=== PATIENT | female | born 1975 | race Caucasian/White ===

== ENCOUNTER → 2017-06-04 | Outpatient (CLI) | payer OTHER ==
--- NOTE | 2017-06-04 11:01 | MM ---
Reason for exam: screening (asymptomatic). Baseline mammogram. History: Took hormonal contraceptives for 2 years. Physical Findings: Nurse Summary: 1 x 1cm nodule in the left breast at 12 o'clock (nurse ts). MG Screening Mammo w CAD Bilateral CC and MLO view(s) were taken. The breast tissue is heterogeneously dense. This may lower the sensitivity of mammography. Finding #1: There are less than 10 mm masses in both breasts. Finding #2: There are typically benign calcifications in both breasts. These results were verbally communicated with the patient and result sheet given to the patient on 06/04/17. ASSESSMENT: Incomplete: need additional imaging evaluation, BI-RAD 0 RECOMMENDATION: Ultrasound of both breasts. [facility] will attempt to contact patient to return for ultrasound.
--- NOTE | 2017-06-04 11:07 | USB ---
Reason for exam: additional evaluation requested from abnormal screening. History: Took hormonal contraceptives for 2 years. US Breast Workup FRED Right breast ultrasound includes all four quadrants, the retroareolar region and axilla. Finding demonstrates several oval, cystic lesions measuring 3 x 3 x 5mm at 3 o'clock, 5 x 4 x 4mm at 5 o'clock, 6 x 6 x 6mm at 10 o'clock and 8 x 5 x 7mm at 11 o'clock. Left breast ultrasound includes all four quadrants, the retroareolar region and axilla. Finding demonstrates several oval, cystic lesions measuring 15 x 9 x 10mm at 12 o'clock, 7 x 5 x 9mm at 4 o'clock, 7 x 7 x 8mm at 6 o'clock, 14 x 7 x 11mm at 10 o'clock and a 7 x 5 x 6 oval, solid lesion at 4 o'clock for which an aspiration is recommended. These results were verbally communicated with the patient and result sheet given to the patient on 06/04/17. ASSESSMENT: Suspicious, BI-RAD 4 RECOMMENDATION: Aspiration of the left breast. Called Dr. Krishnan with mammographic findings and has scheduled an appointment for the patient for 06/21/17 at 10:[address] Oneal. Aspiration scheduled for 06/06/17 at 8 o'clock. PRELIMINARY REPORT CALLED AND FAXED TO DR. ONEAL ON 06/04/17 /TP.
== END | disposition home or self-care (01) ==
LOC: RADMAMWWP 08:01
PROVIDERS: ATTEND Obstetrics & Gynecology
DX: Z12.31 Encounter for screening mammogram for malignant neoplasm of breast (principal); R92.8 Other abnormal and inconclusive findings on diagnostic imaging of breast
CPT/HCPCS: 76641; G0202

== ENCOUNTER → 2017-06-06 | Day surgery (SDC) | payer OTHER ==
[2017-06-06 07:35] VITALS: PULSE 80; RESP 16; BMI 28.6
--- NOTE | 2017-06-06 09:13 | USB ---
EXAMINATION TYPE: US biopsy breast VAD LT, Postbiopsy diagnostic mammo LT wo CAD DATE OF EXAM: 06/06/2017 CLINICAL HISTORY: 42-year-old female R92.8 Previous Abnormal Mammogram. Referred for ultrasound-guide d left breast biopsy. TECHNIQUE: Ultrasound guided core biopsy of the left breast. COMPARISON: 06/04/2017 FINDINGS: The procedure of ultrasound guided core biopsy was explained to the patient. Benefits, alt ernatives, and risks were discussed. An informed consent was then obtained. The patient was placed in supine positioning for imaging and for the procedure. The overlying skin w as prepped and draped in usual sterile fashion. Lidocaine was used as anesthetic into the skin and s ubcutaneous tissue up to area of concern in the 4:00 left breast. The targeted area corresponds to a 7 mm circumscribed hypoechoic lesion with posterior through transmission. Under ultrasound guidance, a 13-gauge vacuum-assisted mammotome Elite biopsy gun device was used to o btain 7 core samples. Following this, a coil clip was left at the site of biopsy. Most of the lesion was removed with the multiple samples. The patient tolerated the procedure well without any immediate complication. The patient was kept in the radiology department for short stay after the procedure and then discharged home in stable condi tion. Postbiopsy mammogram shows clip in place at a middle depth within the lower outer quadrant. IMPRESSION: Successful, uncomplicated ultrasound guided core biopsy of area of concern in the 4:00 left breast, f ull pathology results to follow.
[2017-06-06 09:25] VITALS: BP 115/76; TEMP 98.1
== END ==
LOC: RADUSWWP 07:13
PROVIDERS: ATTEND Surgery
DX: D24.2 Benign neoplasm of left breast (principal); R92.8 Other abnormal and inconclusive findings on diagnostic imaging of breast; N60.32 Fibrosclerosis of left breast; N60.82 Other benign mammary dysplasias of left breast; N64.89 Other specified disorders of breast
CPT/HCPCS: 88305

== ENCOUNTER → 2020-10-12 | Outpatient (CLI) | payer OTHER ==
--- NOTE | 2020-10-13 11:09 | MM ---
Reason for exam: screening (asymptomatic). Last mammogram was performed 3 years and 4 months ago. History: Patient has history of high-risk lesion on a previous biopsy at age 42. High risk US biopsy breast VAD LT of the left breast, June 06, 2017. Took hormonal contraceptives for 2 years. Physical Findings: A clinical breast exam by your physician is recommended on an annual basis and results should be correlated with mammographic findings. MG 3D Screening Mammo W/Cad Bilateral CC and MLO view(s) were taken. Prior study comparison: June 06, 2017, left breast MG diagnostic mammo LT wo CAD. June 04, 2017, bilateral MG screening mammo w CAD. The breast tissue is heterogeneously dense. This may lower the sensitivity of mammography. There is increasing chronic nodularity bilaterally. ASSESSMENT: Incomplete: need additional imaging evaluation, BI-RAD 0 RECOMMENDATION: Ultrasound of both breasts. [facility] will attempt to contact patient to return for ultrasound.
== END | disposition home or self-care (01) ==
LOC: RADMAMWWP 16:42
PROVIDERS: ATTEND Family Medicine
DX: Z12.31 Encounter for screening mammogram for malignant neoplasm of breast (principal); Z80.3 Family history of malignant neoplasm of breast
CPT/HCPCS: 77063; 77067

== ENCOUNTER → 2020-10-15 | Outpatient (CLI) | payer OTHER ==
--- NOTE | 2020-10-15 14:56 | USB ---
Reason for exam: additional evaluation requested from abnormal screening. History: Patient has history of high-risk lesion on a previous biopsy at age 42. High risk US biopsy breast VAD LT of the left breast, June 06, 2017. Took hormonal contraceptives for 2 years. Physical Findings: Nurse Summary: left breast 1 o'clock 2cm movable lump (nurse TM). US Breast Workup FRED Right complete breast ultrasound includes all four quadrants, the retroareolar region and axilla. Finding demonstrates a 1.5 x 1.4 x 1.1cm cystic lesion at 12 o'clock and a 1.2 x 1.3 x 0.8cm cystic lesion at 8 o'clock. Left complete breast ultrasound includes all four quadrants, the retroareolar region and axilla. Finding demonstrates a 2.6 x 2.8 x 1.4cm cystic lesion at 12 o'clock, a 1.2 x 1.4 x 0.7cm cystic lesion at 6 o'clock and a 1.0 x 0.8 x 0.9cm cystic lesion at 8 o'clock. These results were verbally communicated with the patient and result sheet given to the patient on 10/15/20. ASSESSMENT: Benign, BI-RAD 2 RECOMMENDATION: Return to routine screening mammogram schedule for both breasts.
== END | disposition home or self-care (01) ==
LOC: RADUSWWP 13:36
PROVIDERS: ATTEND Family Medicine
DX: R92.8 Other abnormal and inconclusive findings on diagnostic imaging of breast (principal)

== ENCOUNTER → 2020-10-27 | Outpatient (CLI) | payer OTHER ==
--- NOTE | 2020-10-28 10:03 | US ---
EXAMINATION TYPE: US transvaginal DATE OF EXAM: 10/27/2020 COMPARISON: NONE CLINICAL HISTORY: N92.0 MENORRHAGIA. TECHNIQUE: Transvaginal (TV). Date of LMP: 10/16/2020 EXAM MEASUREMENTS: Uterus: 9.0 x 3.9 x 5.2 cm Endometrial Stripe: 0.9 cm Right Ovary: 2.2 x 1.5 x 1.6 cm Left Ovary: 2.6 x 1.8 x 2.1 cm 1. Uterus: Anteverted, multiple nabothian cysts noted 2. Endometrium: multiple tiny cystic areas, hyperechoic focus measuring 1.1 x 0.8 x 1.1cm, possible polyp 3. Right Ovary: wnl 4. Left Ovary: wnl 5. Bilateral Adnexa: wnl 6. Posterior cul-de-sac: wnl IMPRESSION: 1. Small hypoechoic areas is small hyperechoic focus measuring up to 1 cm is present within the endom etrium. Consider possible polyp.
== END | disposition home or self-care (01) ==
LOC: RADUSWWP 16:10
PROVIDERS: ATTEND Obstetrics & Gynecology
DX: R93.89 Abnormal findings on diagnostic imaging of other specified body structures (principal)
CPT/HCPCS: 76830

== ENCOUNTER → 2020-11-26 | Day surgery (SDC) | payer OTHER ==
[2020-11-24 09:58] VITALS: BMI 34.0
--- NOTE | 2020-11-25 18:28 | P.HPOB ---
History of Present Illness H&P Date: 11/25/20 Chief Complaint: Dysfunctional uterine bleeding This patient is a pleasant 45-year-old 3 para 3 female who presented to me with complaints of irregular menstrual bleeding. Patient had an ultrasound performed which showed a 1.1 cm probable endometrial polyp. Patient now presents for hysteroscopy and D&C for further evaluation and treatment. Review of Systems Genitourinary: Reports abnormal vaginal bleeding Menstruation: Reports as per HPI Past Medical History Past Medical History: No Reported History Additional Past Medical History / Comment(s): intermittent bleeding between menses,possible polyp seen on transvaginal US History of Any Multi-Drug Resistant Organisms: None Reported Past Surgical History: Hernia Repair, Tubal Ligation Additional Past Surgical History / Comment(s): umbilical hernia repair Past Anesthesia/Blood Transfusion Reactions: No Reported Reaction Additional Past Anesthesia/Blood Transfusion Reaction / Comment(s): no hx blood transfusion Past Psychological History: No Psychological Hx Reported Smoking Status: Current every day smoker Past Alcohol Use History: None Reported Past Drug Use History: None Reported - Past Family History Mother Family Medical History: Cancer, Coronary Artery Disease (CAD), Diabetes Mellitus Additional Family Medical History / Comment(s): breast Father Family Medical History: Coronary Artery Disease (CAD), Diabetes Mellitus Medications and Allergies Home Medications Medication Instructions Recorded Confirmed Type Multivitamin,Therapeutic [Thera] 1 tab PO DAILY 06/04/17 11/24/20 History [place]-3 Fatty Acids/Fish Oil [Fish 1,000 mg PO DAILY 06/04/17 11/24/20 History Oil 1,000 mg Softgel] Cholecalciferol (Vitamin D3) 125 mcg PO DAILY 11/24/20 11/24/20 History [Vitamin D3 (5000 Iu)] Nicotine 21Mg/24Hr Patch [Habitrol] 1 each TRANSDERM DAILY 11/24/20 11/24/20 History Allergies Allergy/AdvReac Type Severity Reaction Status Date / Time No Known Allergies Allergy Verified 11/24/20 09:48 Exam - OBG Physical Exam Abdomen: bowel sounds normal, no diffuse tenderness, no bruit present, no guarding noted, no hepatomegaly, no splenomegaly, no mass Vulva: both: normal Vagina: normal moisture, no discharge Cervix: no lesion, no discharge Uterus: normal size, normal contour Results Ultrasound shows a probable 1.1 cm endometrial polyp Assessment and Plan Assessment: This is a pleasant 45-year-old 3 para 3 female with dysfunctional uterine bleeding and ultrasound suggesting a 1.1 cm endometrial polyp. Plan is hysteroscopy, D&C, and removal of polyp. Patient understands this surgery and risks including risks of infection, bleeding, possible uterine perforation. All the patient's questions are answered and a written consent is obtained. (1) Dysfunctional uterine bleeding Status: Acute Code(s): N93.8 - OTHER SPECIFIED ABNORMAL UTERINE AND VAGINAL BLEEDING SNOMED Code(s): 18220017576678
[~2020-11-26] MED LIST: DEXAMETHASONE SOD PHOSPHATE 4 MG/ML 1 ML VIAL IVP ONE; HYDROmorphone 0.5 MG/0.5 ML SYRINGE IVP ONE; IBUPROFEN 200 MG TAB PO ONE; KETOROLAC 15 MG/ML 1 ML VIAL ONE; LACTATED RINGERS 1,000 ML IV ONE; LIDOCAINE 1% INJ 10MG/ML (20 ML MDV) ONE; MIDAZOLAM 2 MG/2 ML VIAL ONE; ONDANSETRON 4 MG/2 ML VIAL IVP ONE; ONDANSETRON 4 MG/2 ML VIAL ONE; PROPOFOL 10 MG/ML 20 ML VIAL IV ONE; Pre Op ABX Message 1 EACH MISC MISCELLANE ONE; fentaNYL (PF) 50 MCG/ML 2 ML AMP ONE
[2020-11-26 07:35] VITALS: TEMP 97.3
--- NOTE | 2020-11-26 07:36 | P.OP ---
Date of Procedure: 11/26/20 Preoperative Diagnosis: Dysfunctional uterine bleeding, endometrial polyp Postoperative Diagnosis: Same, no evidence of polyp Procedure(s) Performed: Hysteroscopy and D&C Anesthesia: other (LMA) Surgeon: Pipe Krishnan Estimated Blood Loss (ml): 10 Urine output (ml): 20 Pathology: other (Uterine curettings) Condition: stable Disposition: PACU Indications for Procedure: Please see dictated H&P for intimate details of this patient's admission. In brief summary this is a pleasant 45-year-old 3 para 3 female with dysfunctional uterine bleeding ultrasounds suggestive of 1.1 cm endometrial polyp. Patient presents for hysteroscopy D&C for further evaluation and treatment. Operative Findings: This patient had a normal-appearing endometrial cavity without evidence of an endometrial polyp Description of Procedure: This patient is taken to the operating room where she is laid in the supine position. She subsequently undergoes general anesthesia without incident. With an adequate level of anesthesia she's placed in dorsal lithotomy position. She has a vaginal perineal prep and drape. Examination under anesthesia shows a mid position uterus. I drain the bladder for 20 mL of clear urine. Weighted speculum was placed in the posterior vagina and the anterior lip of the cervix was grabbed with an Allis clamp. Uterus is then gently dilated to 8 cm. Serial dilation is done to allow the hysteroscope into the uterine cavity. Hysteroscopy is then performed with saline solution. Very close inspection of the uterine cavity shows no evidence of a uterine polyp. With this done the hysteroscope was removed. Gentle dilation is done more to allow a curette easily uterine cavity. A gentle but thorough 4 quadrant curettage is then done for adequate sampling. This done the procedure is ended. The Allis clamp and weighted speculum was removed. All counts correct 3. There are no complications. Patient is awakened from anesthesia and taken to the recovery room in satisfactory condition.
[2020-11-26 08:18] VITALS: RESP 16
[2020-11-26 09:02] VITALS: BP 124/84; PULSE 76
== END | disposition home or self-care (01) ==
LOC: OR 05:49
PROVIDERS: ATTEND Obstetrics & Gynecology
DX: N93.8 Other specified abnormal uterine and vaginal bleeding (principal); R87.69 Abnormal cytological findings in specimens from other female genital organs; N92.6 Irregular menstruation, unspecified; F17.210 Nicotine dependence, cigarettes, uncomplicated; Z98.890 Other specified postprocedural states; Z98.51 Tubal ligation status; Z80.3 Family history of malignant neoplasm of breast; Z82.49 Family history of ischemic heart disease and other diseases of the circulatory system; Z83.3 Family history of diabetes mellitus
CPT/HCPCS: 81025; 88305; 58558; J2250; J1100; J2405; J2001; J3010; J1885; J2704; J1170

== ENCOUNTER 2021-04-27 05:45 | Day surgery (SDC) | payer OTHER ==
[2021-04-22 10:44] VITALS: BMI 31.7
--- NOTE | 2021-04-26 12:34 | P.HPOB ---
History of Present Illness H&P Date: 04/26/21 Chief Complaint: Menorrhagia This patient is a pleasant 45-year-old 3 para 3 female who presents for endometrial ablation secondary to refractory menorrhagia. History is such that she had a D&C in October of this year for what appeared to be a large polyp however D&C did not confirm this polyp and did have negative pathology. Patient had persistent bleeding at this time is requesting endometrial ablation for treatment. Patient is not a hormone candidate and has had a tubal ligation for control. Review of Systems Genitourinary: Reports menorrhagia Past Medical History Past Medical History: Diabetes Mellitus Additional Past Medical History / Comment(s): Borderline Diabetes. History of Any Multi-Drug Resistant Organisms: None Reported Past Surgical History: Hernia Repair, Tubal Ligation Additional Past Surgical History / Comment(s): Umbilical hernia repair, hysteroscopy with D&C. Past Anesthesia/Blood Transfusion Reactions: No Reported Reaction Additional Past Anesthesia/Blood Transfusion Reaction / Comment(s): No hx blood transfusion. Past Psychological History: Anxiety Smoking Status: Current every day smoker Past Alcohol Use History: Rare Additional Past Alcohol Use History / Comment(s): Started smoking at age 19,1 ppd. Past Drug Use History: None Reported - Past Family History Mother Family Medical History: Cancer, Coronary Artery Disease (CAD), Diabetes Mellitus Additional Family Medical History / Comment(s): Breast Cancer. Father Family Medical History: Coronary Artery Disease (CAD), Diabetes Mellitus Medications and Allergies Home Medications Medication Instructions Recorded Confirmed Type Ergocalciferol [Vitamin D2 (1250 1,250 mcg PO MO 04/22/21 04/22/21 History Mcg = 74274 Iu)] Gum [place]-3 Fatty Acids/Fish Oil [Fish 1 each PO DAILY 04/22/21 04/22/21 History Oil 1,000 mg Softgel] Sertraline [Zoloft] 25 mg PO QAM 04/22/21 04/22/21 History metFORMIN HCL [Glucophage] 500 mg PO BID 04/22/21 04/22/21 History Allergies Allergy/AdvReac Type Severity Reaction Status Date / Time No Known Allergies Allergy Verified 04/22/21 10:33 Exam - OBG Physical Exam Abdomen: bowel sounds normal, no diffuse tenderness, no bruit present, no guarding noted, no hepatomegaly, no splenomegaly, no mass Vagina: normal moisture, no discharge Cervix: no lesion, no discharge Uterus: normal size, normal contour Assessment and Plan Assessment: This is a pleasant 45-year-old 3 para 3 female with refractory menorrhagia/dysfunctional uterine bleeding. Patient is requesting endometrial a blation for treatment. Plan is hysteroscopy, D&C, and NovaSure endometrial ablation. Patient does understand the surgery and risks and risks of infection, bleeding, possible uterine perforation and/or thermal injury. All the patient's questions are answered written consent obtained. (1) Dysfunctional uterine bleeding Status: Acute Code(s): N93.8 - OTHER SPECIFIED ABNORMAL UTERINE AND VAGINAL BLEEDING SNOMED Code(s): 82274997401978
[~2021-04-27 05:45] MED LIST changes: -DEXAMETHASONE SOD PHOSPHATE 4 MG/ML 1 ML VIAL IVP ONE; -HYDROmorphone 0.5 MG/0.5 ML SYRINGE IVP ONE; -IBUPROFEN 200 MG TAB PO ONE; -KETOROLAC 15 MG/ML 1 ML VIAL ONE; -LACTATED RINGERS 1,000 ML IV ONE; -LIDOCAINE 1% INJ 10MG/ML (20 ML MDV) ONE; -MIDAZOLAM 2 MG/2 ML VIAL ONE; -ONDANSETRON 4 MG/2 ML VIAL IVP ONE; -ONDANSETRON 4 MG/2 ML VIAL ONE; -PROPOFOL 10 MG/ML 20 ML VIAL IV ONE; -fentaNYL (PF) 50 MCG/ML 2 ML AMP ONE
[2021-04-27] MEDS ORDERED: DEXAMETHASONE SOD PHOSPHATE 4 MG/ML 1 ML VIAL IV ONE (06:03)
[2021-04-27] MEDS ORDERED: HYDROmorphone 0.5 MG/0.5 ML SYRINGE IVP PRN (06:03)
[2021-04-27] MEDS ORDERED: LACTATED RINGERS 1,000 ML IV SCH (06:03)
[2021-04-27] MEDS ORDERED: ONDANSETRON 4 MG/2 ML VIAL IVP ONE (06:03)
[2021-04-27] MEDS ORDERED: LIDOCAINE 1% (10MG/ML) FOR IV START INTRADERMA PRN (06:03)
[2021-04-27] MEDS ORDERED: MIDAZOLAM 2 MG/2 ML VIAL IV PRN (06:03)
[2021-04-27 06:29] LABS: Glucose,Whole Blood 111 mg/dL (75-99)
[2021-04-27 06:33] VITALS: TEMP 97
[2021-04-27] MEDS ORDERED: PROPOFOL 10 MG/ML 20 ML VIAL IV ONE (06:54)
[2021-04-27] MEDS ORDERED: fentaNYL (PF) 50 MCG/ML 2 ML AMP ONE (06:54)
[2021-04-27] MEDS ORDERED: LIDOCAINE 1% INJ 10MG/ML (20 ML MDV) ONE (06:54)
[2021-04-27] MEDS ORDERED: GLYCOPYRROLATE 0.2 MG/ML 2 ML VIAL ONE (06:54)
[2021-04-27] MEDS ORDERED: KETOROLAC 15 MG/ML 1 ML VIAL ONE (06:54)
[2021-04-27] MEDS ORDERED: MIDAZOLAM 2 MG/2 ML VIAL ONE (06:54)
--- NOTE | 2021-04-27 07:32 | P.OP ---
Date of Procedure: 04/27/21 Preoperative Diagnosis: Dysfunctional uterine bleeding/menorrhagia Postoperative Diagnosis: Same Procedure(s) Performed: #1: Hysteroscopy. #2: Dilation and curettage Anesthesia: MAC Surgeon: Pipe Krishnan Estimated Blood Loss (ml): 10 IV fluids (ml): 20 Pathology: other (Uterine curettings) Condition: stable Disposition: PACU Indications for Procedure: Please see dictated H&P for intimate details of this patient's admission. Brief summary this is a pleasant 45-year-old female with long-standing menorrhagia status post D&C earlier this year for an endometrial polyp which has persistent menorrhagia not a hormone candidate requesting endometrial ablation for treatment. She does understand this procedure and risks and risks of infection, bleeding, possible uterine perforation, and/or thermal injury. All the patient's questions are answered written consent is obtained. Operative Findings: This patient had a normal-appearing uterine cavity Description of Procedure: This patient is taken to the operating room where she is laid in the supine position. She subsequent undergoes general mask anesthesia without incident. With adequate level of anesthesia she's placed in dorsal lithotomy position. She has a vaginal, perineal prep and drape. Examination under anesthesia shows a mid position uterus of normal size. The bladder is drained for 20 mL of clear urine. Weighted speculum was placed in posterior vagina. The anterior lip of the cervix is grabbed with an Allis clamp. I then gently sound the uterus to 8 cm. Serial dilation is then done to allow the hysteroscope easily and the uterine cavity. Hysteroscopy is performed uterine cavity is observed and appears to be normal and measured a length of 6.0 cm with this done the hysteroscope was removed. Cervix is dilated more to allow a small curette easily uterine cavity a gentle but thorough 4 quadrant curettage is then done. With this completed the NovaSure device is then opened and set at a length of 6.0 cm. It is seated in place and opens up to a width of 3.2 cm. At this point it passes the cavity integrity test is then enabled at 106 W settings for 46 seconds. NovaSure device is then removed and appears to be intact. Hysteroscopy is then performed again and the uterine cavity appears to be ablated up to the endocervix. With this done the procedure is ended the weighted speculum and Allis clamp was removed. All counts are correct 3. There are no complications. Patient is awakened from anesthesia and taken to the recovery room in satisfactory condition
[2021-04-27 07:45] VITALS: RESP 18
[2021-04-27 08:23] VITALS: BP 132/88; PULSE 78
== END 2021-04-27 08:51 | disposition home or self-care (01) ==
LOC: OR 05:45
PROVIDERS: ATTEND Obstetrics & Gynecology
DX: N92.0 Excessive and frequent menstruation with regular cycle (principal); N93.8 Other specified abnormal uterine and vaginal bleeding; Z98.51 Tubal ligation status; R73.03 Prediabetes; Z90.710 Acquired absence of both cervix and uterus; Z98.890 Other specified postprocedural states; F41.9 Anxiety disorder, unspecified; F17.210 Nicotine dependence, cigarettes, uncomplicated; Z82.49 Family history of ischemic heart disease and other diseases of the circulatory system; Z83.3 Family history of diabetes mellitus; Z80.3 Family history of malignant neoplasm of breast; Z79.84 Long term (current) use of oral hypoglycemic drugs; Z79.899 Other long term (current) drug therapy
CPT/HCPCS: 58563; 81025; 88305; J2250; J1100; J2405; J2001; J3010; J1885; J2704; J1170

== ENCOUNTER → 2021-11-02 | Outpatient (CLI) | payer OTHER ==
--- NOTE | 2021-11-03 10:59 | MM ---
Reason for exam: screening (asymptomatic). Last mammogram was performed 1 year and 1 month ago. History: Patient has history of high-risk lesion on a previous biopsy at age 42. Family history of breast cancer in mother at age 62. High risk US biopsy breast VAD LT of the left breast, June 06, 2017. Took hormonal contraceptives for 2 years. Physical Findings: A clinical breast exam by your physician is recommended on an annual basis and results should be correlated with mammographic findings. MG 3D Screening Mammo W/Cad Bilateral CC and MLO view(s) were taken. Prior study comparison: October 12, 2020, bilateral MG 3d screening mammo w/cad. June 06, 2017, left breast MG diagnostic mammo LT wo CAD. The breast tissue is heterogeneously dense. This may lower the sensitivity of mammography. There are benign appearing round calcifications bilaterally. There are new grouped calcifications in the left breast. Previous mammotome biopsy in the left breast. There is chronic nodularity bilaterally, stable or decreased in size from 2020. This finding is changed when compared with previous exams. ASSESSMENT: Incomplete: need additional imaging evaluation, BI-RAD 0 RECOMMENDATION: Special view mammogram of the left breast. [facility] will attempt to contact patient to return for supplemental views.
== END | disposition home or self-care (01) ==
LOC: RADMAMWWP 13:15
PROVIDERS: ATTEND Obstetrics & Gynecology
DX: Z12.31 Encounter for screening mammogram for malignant neoplasm of breast (principal)
CPT/HCPCS: 77063; 77067

== ENCOUNTER → 2021-12-05 | Day surgery (SDC) | payer OTHER ==
[2021-12-05 09:55] VITALS: RESP 16
[2021-12-05 12:41] VITALS: BP 130/83; PULSE 81; TEMP 98.1
--- NOTE | 2021-12-05 14:58 | USB ---
EXAMINATION TYPE: MG stereo VAD BX LT, MG stereo VAD BX addl LT, US breast aspiration single LT DATE OF EXAM: 12/05/2021 CLINICAL HISTORY: 46-year-old female referred for stereotactic core needle biopsy of new/increased left breast microcalcifications and aspiration of the symptomatic left breast cyst. R92.8 ABN MAMMO. TECHNIQUE: 2 site left breast stereotactic core needle biopsy. One site left breast ultrasound cyst aspiration. COMPARISON: 11/02/2021, 11/04/2021 FINDINGS: The procedure of stereotactic guided core biopsy was explained to the patient. Benefits, alternatives, and risks were discussed. An informed consent was then obtained. SITE 1, Posterior lateral: The shortness pathway for biopsy was chosen. Shortness pathway was a lateral approach. I performed the localization, followed by the remainder of the procedure. A vacuum assisted biopsy gun was used to obtain 3 core samples. A Securemark clip was placed. Targeted calcifications are identified in specimen mammogram. SITE 2, Anterior lateral: The path in which the calcifications were best seen was chosen. A CC from above approach was utilized. I performed the localization followed by the remainder of the procedure. A vacuum assisted biopsy gun was used to obtain 5 core samples. A Trimark clip was placed. The patient tolerated the procedure well without any immediate complication. The patient was kept in the radiology department for short stay after the procedure. The procedure of ultrasound guided core biopsy was explained to the patient. Benefits, alternatives, and risks were discussed. An informed consent was then obtained. SITE 3: US ASPIRATION 3.0 cm CYST AT 12:00: The patient was placed in supine positioning for imaging and for the procedure. The overlying skin was prepped and draped in usual sterile fashion. Lidocaine was used as anesthetic into the skin and subcutaneous tissue up to area of concern in the 12:00 left breast. Under ultrasound guidance, an 18-gauge spinal needle was advanced into the cyst and aspiration yielded 6 mL of opaque murky fluid. The fluid was labeled and sent for laboratory analysis. Aspirate appearance most compatible with benign cyst contents. This cyst entirely collapsed with the aspiration. No biopsy clip was placed. Post biopsy mammogram shows the 2 stereotactic core needle biopsy clips in satisfactory position relative to the targeted areas of microcalcifications. The patient tolerated the procedure well without any immediate complication. The patient was kept in the radiology department for short stay after the procedure and then discharged home in stable condition. IMPRESSION: Successful, uncomplicated: 1. Stereotactic core needle biopsy posterior and lateral left breast microcalcifications. 2. Stereotactic core needle biopsy middle depth lateral left breast microcalcifications. Note that additional more anterior as well as medial microcalcifications are also present. If malignant or high risk results at these 2 sites, further sampling may be indicated. Otherwise, short interval follow-up can be performed. 3. Ultrasound guided 12:00, 3.0 cm symptomatic cyst aspiration. No clip placed. Benign cyst contents favored. RECOMMENDATION: 1. Follow pathology and cytology results. 2. If high risk or malignant results, further stereotactic core needle biopsy may be indicated. 3. If benign results, six-month follow-up diagnostic left breast mammogram will be recommended for additional sites of microcalcifications. Pathology Results: High Risk LEFT BREAST, 12:00 POSITION, CYST ASPIRATION: Cyst contents and scattered benign cyst lining cells having apocrine metaplasia. A. LEFT BREAST, SITE A 0200 POSTERIOR, CORE BIOPSY: Flat epithelial atypia/atypical ductal hyperplasia with microcalcification and atypical apocrine hyperplasia (see note). B. LEFT BREAST, SITE B 0300 ANTERIOR, CORE BIOPSY: Flat epithelial atypia/atypical ductal hyperplasia with a background of proliferative fibrocystic change and areas of microcalcification (see note). Recommendation Surgical consult of the left breast Stereotactic core biopsy site A: needle localization Stereotactic core biopsy site B: needle localization Ultrasound cyst aspiration: benign MTDD
== END ==
LOC: RADMAMWWP 09:22 → EDSTATUS 10:30
PROVIDERS: ATTEND Surgery
DX: N60.92 Unspecified benign mammary dysplasia of left breast (principal); N60.02 Solitary cyst of left breast; N60.82 Other benign mammary dysplasias of left breast; R92.1 Mammographic calcification found on diagnostic imaging of breast; R92.8 Other abnormal and inconclusive findings on diagnostic imaging of breast
CPT/HCPCS: 88108; 88305; 19081; 19082; 76942; 19000; A4648; J2001

== ENCOUNTER 2022-01-30 06:48 | Day surgery (SDC) | payer OTHER ==
[2022-01-25 16:14] VITALS: BMI 33.3
[~2022-01-30 06:48] MED LIST changes: +ACETAMINOPHEN TAB 500 MG TAB PO PRN; +DEXAMETHASONE SOD PHOSPHATE 4 MG/ML 1 ML VIAL IV ONE; +HEPARIN SODIUM,PORCINE/PF 5,000 UNIT/0.5 ML SYRINGE SQ PRN; +HYDROmorphone 0.5 MG/0.5 ML SYRINGE IVP PRN; +LIDOCAINE 1% (10MG/ML) FOR IV START INTRADERMA PRN; +ONDANSETRON 4 MG/2 ML VIAL IVP ONE
[2022-01-30 07:18] VITALS: RESP 16
[2022-01-30] MEDS: LACTATED RINGERS 1,000 ML IV SCH ×2 (07:35→09:19)
[2022-01-30 07:40] LABS: Glucose,Whole Blood 114 mg/dL (75-99)
[2022-01-30] MEDS ORDERED: ACETAMINOPHEN TAB 500 MG TAB ONE (07:45)
[2022-01-30] MEDS ORDERED: LIDOCAINE 1% INJ 10MG/ML (20 ML MDV) SQ ONE (08:35)
--- NOTE | 2022-01-30 08:50 | P.GSHP ---
History of Present Illness H&P Date: 01/30/22 Chief Complaint: Abnormal mammogram 46-year-old female here today for wire localization biopsy. Patient has 2 separate areas of atypical ductal hyperplasia recently found left breast. Patient is otherwise asymptomatic. She had a large cyst that she was able to palpate that was drained same time. She does have a family history of breast cancer. Past Medical History Past Medical History: Diabetes Mellitus Additional Past Medical History / Comment(s): Borderline Pre-Diabetes. Hx Covid 09/18. History of Any Multi-Drug Resistant Organisms: None Reported Past Surgical History: Hernia Repair, Tubal Ligation, Uterine Ablation Additional Past Surgical History / Comment(s): Left Breast biopsy 2017 (benign), umbilical hernia repair, hysteroscopy with D&C. Past Anesthesia/Blood Transfusion Reactions: No Reported Reaction Additional Past Anesthesia/Blood Transfusion Reaction / Comment(s): No hx blood transfusion to date. Past Psychological History: Anxiety Smoking Status: Former smoker Past Alcohol Use History: Rare Additional Past Alcohol Use History / Comment(s): Started smoking at age 19, 1 ppd X23 years. Quit smoking October 26, 2021. Past Drug Use History: None Reported - Past Family History Mother Family Medical History: Cancer, Coronary Artery Disease (CAD), Diabetes Mellitus Additional Family Medical History / Comment(s): Breast Cancer diagnosed at age 63. Father Family Medical History: Coronary Artery Disease (CAD), Diabetes Mellitus Medications and Allergies Home Medications Medication Instructions Recorded Confirmed Type Ergocalciferol [Vitamin D2 (1250 1,250 mcg PO OCONNOR 04/22/21 01/25/22 History Mcg = 11120 Iu)] [place]-3 Fatty Acids/Fish Oil [Fish 1 each PO DAILY 04/22/21 01/25/22 History Oil 1,000 mg Softgel] Vitamin D3 (Unknown Dose) 1 tab PO DAILY 01/25/22 01/25/22 History Acetaminophen-Codeine 300-30mg 1 tab PO Q6H PRN 3 Days #5 tablet 01/30/22 Rx [Tylenol w/codeine #3] Sertraline [Zoloft] 1 tab PO DAILY 01/30/22 01/30/22 History Allergies Allergy/AdvReac Type Severity Reaction Status Date / Time No Known Allergies Allergy Verified 01/30/22 07:03 Surgical - Exam Vital Signs Temp Pulse Resp BP Pulse Ox 97.6 F 89 16 135/64 95 01/30/22 07:17 01/30/22 07:17 01/30/22 07:17 01/30/22 07:17 01/30/22 07:17 Physical exam: General: Well-developed, well-nourished HEENT: Normocephalic, sclerae nonicteric Right breast: No masses, no adenopathy Left breast: No masses, no adenopathy Abdomen: Nontender, nondistended Extremities: No edema Neuro: Alert and oriented Results - Labs Abnormal Lab Results - Last 24 Hours (Table) 01/30/22 Range/Units 07:29 POC Glucose (mg/dL) 114 H (75-99) mg/dL Assessment and Plan (1) Atypical ductal hyperplasia of left breast Narrative/Plan: Abnormal left mammogram with atypical ductal hyperplasia. We'll proceed with wire localization biopsy 2 sites left breast. Risks of bleeding, infection, scarring, possible need for further surgery reviewed. She understands and wishes to proceed. Current Visit: Yes Status: Acute Code(s): N60.92 - UNSPECIFIED BENIGN MAMMARY DYSPLASIA OF LEFT BREAST SNOMED Code(s): 560628454
[2022-01-30] MEDS ORDERED: PROPOFOL 10 MG/ML 20 ML VIAL IV ONE (09:13)
[2022-01-30] MEDS ORDERED: MIDAZOLAM 2 MG/2 ML VIAL ONE (09:13)
[2022-01-30] MEDS ORDERED: fentaNYL (PF) 50 MCG/ML 2 ML AMP ONE (09:13)
[2022-01-30] MEDS ORDERED: KETOROLAC 15 MG/ML 1 ML VIAL ONE (09:13)
[2022-01-30] MEDS ORDERED: LIDOCAINE 1% INJ 10MG/ML (20 ML MDV) ONE (09:13)
[2022-01-30] MEDS ORDERED: BUPIVACAINE (PF) 0.25% 30 ML VIAL SQ ONE ×2 (09:38→10:08)
[2022-01-30] MEDS ORDERED: SODIUM CHLORIDE 0.9% 50 ML with ceFAZolin 2,000 MG IV ONE ×2 (09:44)
--- NOTE | 2022-01-30 10:26 | P.OP ---
Date of Procedure: 01/30/22 Procedure(s) Performed: PREOPERATIVE DIAGNOSIS: Abnormal left mammogram POSTOPERATIVE DIAGNOSIS: Same PROCEDURE: Left Breast wire localization biopsy 2 sites SURGEON: Jm EBL: Minimal ANESTHESIA: General plus local COMPLICATIONS: None OPERATIVE PROCEDURE: Patient was placed on the operating room table in the supine position. The patient's breast was prepped and draped in usual sterile fashion. 2 separate wires running the breast laterally. A curvilinear incision was made between the 2 wire entrance site. I first followed the posterior wire down into the breast tissue. The breast tissue around the tip of the wire was fully excised using electrocautery. The specimen was sent for specimen radio gram. The clip was present within the specimen. The anterior wire was then addressed. This was able to be dissected into the incision site. The breast tissue around the distal aspect of the wire including more of the inferior and lateral breast tissue was excised. Again a specimen radiograph confirmed the clip to be present within the specimen. I did use a small clip on a small vessel posteriorly. The subcutaneous tissues were irrigated and inspected. No bleeding was seen. The subcutaneous tissues were closed using 3-0 Vicryl sutures. The skin was closed using a running 4-0 Monocryl stitch. Skin glue was then applied. DISPOSITION: Stable to recovery room
[2022-01-30 10:40] VITALS: TEMP 97.6
[2022-01-30 11:42] VITALS: BP 131/85; PULSE 74
--- NOTE | 2022-01-30 16:31 | MM ---
EXAMINATION TYPE: MG pre op needle loc LT, MG pre op loc each addl LT MG surgical specimen LT, MG surgical specimen LT, DATE OF EXAM: 01/30/2022 COMPARISON: 12/05/2021, 11/02/2021 CLINICAL HISTORY: 46-year-old female with biopsy-proven 2 sites of atypia in the left breast. Referred for needle localization for excision. TECHNIQUE: Needle localization with wire placement and surgical excision of area of concern, 2 sites in the left breast. FINDINGS: The procedure of needle localization with wire placement and than surgical excision was explained to the patient. Benefits, alternatives, and risks were discussed. An informed consent was then obtained. The shortest pathway for procedure was chosen. Shortest pathway was a lateral approach. The overlying skin was prepped and draped in usual sterile fashion. 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 SITE A, POSTERIOR CLIP: A 5 cm Kopans needle was used. It was placed via a lateral approach under mammographic guidance. Subsequent 90 degrees mammogram show the needle to be in satisfactory position relative to the targeted area. At this point, wire was placed and the needle was withdrawn. The wire was fixed to patient's skin. Images were marked for surgeon. SITE B, ANTERIOR CLIP: A 7 cm needle was used. It was placed via a lateral approach under mammographic guidance. Subsequent 90 degrees mammogram show the needle to be in satisfactory position relative to the targeted area. At this point, wire was placed and the needle was withdrawn. The wire was fixed to patient's skin. Images were marked for surgeon. Microcalcifications seen to be located elsewhere in the breast as well. Excision of the more anterior clip can be extended to include more lateral and inferior tissues. The patient tolerated the procedure well without any immediate complication. The patient was kept in the radiology department for short stay after the procedure and then taken to surgery for surgical excision. Targeted calcifications , clip, and wire are identified in both specimen mammograms. The patient was kept in hospital for short stay after the procedure and then discharged home in stable condition. IMPRESSION: Successful, uncomplicated needle localization with wire placement and surgical excision of 2 sites of biopsy-proven atypia in the left breast. Note additional microcalcifications in the left breast which will warrant short interval follow-up. If any further increase is seen, tissue sampling will be recommended. Full pathology results to follow. Pathology Results: High Risk A. LEFT BREAST TISSUE POSTERIOR, EXCISION: Focal flat epithelial atypia seen (see note). Proliferative fibrocystic change with columnar cell change, papillary apocrine metaplasia, sclerosing adenosis and focal microcalcification. Biopsy site change with associated inflammation. Sections examined negative for diagnostic in situ or invasive malignancy and margins benign. Focal florid usual ductal hyperplasia present. B. LEFT BREAST TISSUE ANTERIOR, EXCISION: Focal flat epithelial atypia (see note). Proliferative fibrocystic change with apocrine metaplasia, focal microcalcification, adenosis, florid usual ductal hyperplasia and columnar cell change. Sections examined negative for diagnostic in situ or invasive malignancy and margins benign. Focal fibrous scar and associated inflammation with favored biopsy site change present. Recommendation Follow up mammogram of the left breast in 6 months. If any further increasing calcifications at other sites in the left breast, additional biopsy may be indicated. MTDD
== END 2022-01-30 11:54 | disposition home or self-care (01) ==
LOC: OR 06:48
PROVIDERS: ATTEND Surgery
DX: D24.2 Benign neoplasm of left breast (principal); N60.12 Diffuse cystic mastopathy of left breast; N60.11 Diffuse cystic mastopathy of right breast; N60.82 Other benign mammary dysplasias of left breast; N60.81 Other benign mammary dysplasias of right breast; E11.9 Type 2 diabetes mellitus without complications; F41.9 Anxiety disorder, unspecified; Z86.16 Personal history of COVID-19; Z87.891 Personal history of nicotine dependence; Z79.899 Other long term (current) drug therapy; Z79.84 Long term (current) use of oral hypoglycemic drugs; Z98.890 Other specified postprocedural states; Z98.51 Tubal ligation status; Z82.49 Family history of ischemic heart disease and other diseases of the circulatory system; Z83.3 Family history of diabetes mellitus; Z80.3 Family history of malignant neoplasm of breast
CPT/HCPCS: 19125; 19126; 81025; 88307; 76098; 19281; 19282; C1819 ×2; J2250; J1100; J2405; J0690; J2001; J3010; J1885; J2704; J1170; J1644

== ENCOUNTER → 2022-04-17 | Outpatient (CLI) | payer OTHER ==
--- NOTE | 2022-04-18 06:22 | MR ---
EXAMINATION TYPE: MR kidney wo/w con DATE OF EXAM: 04/17/2022 COMPARISON: CT scan 03/14/2022 HISTORY: L renal mass CONTRAST: Standard multiplanar, multisequence MRI departmental protocol images were obtained without contrast a nd with 10 mL intravenous Gadavist gadolinium contrast. Lung bases show no pleural fluid. Heart size is normal. No pericardial effusion. Liver is intact. Spl een is intact. No pancreatic mass. Gallbladder is somewhat contracted. The bile duct are not dilated. Pancreatic duct appears normal. Stomach is intact. There is no adrenal mass. Kidneys have normal size. No hydronephrosis. There is no retroperitoneal ad enopathy. There is no ascites. There is 6.4 x 4.5 cm fluid signal mass on the posterior upper pole left kidney. This has very thin w all and thin internal septations. No evidence of any significant solid component. The contrast images show enhancement of the internal septations as well as the thin wall. Right kidney appears normal. T here is normal enhancement of the portal venous system. No evidence of renal obstruction. IMPRESSION: Complex cyst involving the upper pole left kidney. This is not a simple cyst but I think has a high p robability of being benign and could be followed conservatively with a repeat MRI scan in 6 months.
== END | disposition home or self-care (01) ==
LOC: RADMRIMAIN 11:29
PROVIDERS: ATTEND Urology
DX: D41.02 Neoplasm of uncertain behavior of left kidney (principal)
CPT/HCPCS: 74183; A9585

== ENCOUNTER → 2022-05-15 | Outpatient (CLI) | payer OTHER ==
[2022-05-15 18:48] LABS: Basophils % (A) 0.8 %; Eosinophils # (A) 0.26 X 10*3/uL (0.04-0.35); HCT 45.7 % (37.2-46.3); HGB 14.1 g/dL (12.0-15.0); Immature Grans, Automated 0.5 %; Lymphocytes # (A) 2.68 X 10*3/uL (0.90-5.00); Lymphocytes % (A) 20.7 %; MCH 28.8 pg (27.0-32.0); MCHC 30.9 g/dL (32.0-37.0); MCV 93.3 fL (80.0-97.0); Mean Platelet Volume 12.7 fL (9.5-12.2); Monocytes # (A) 0.65 X 10*3/uL (0.20-1.00); NRBC Per 100 WBC 0 /100 WBCS (0.0-0.0); Neutrophils # (A) 9.19 X 10*3/uL (1.80-7.70); Platelet Count 276 X 10*3/uL (140-440); RDW 12.5 % (11.5-14.5); WBC 12.94 X 10*3/uL (4.50-10.00)
[2022-05-15 18:58] LABS: African American GFR (CKD) 82.4 (60.0-200.0); Anion Gap 10.4 mmol/L (10.00-18.00); BUN/Creat Ratio 12.03 Ratio (12.00-20.00); Blood Urea Nitrogen 11.6 mg/dL (9.0-27.0); Calcium 9.7 mg/dL (8.7-10.3); Non-African American GFR(CKD) 71.1 (60.0-200.0); Potassium 4.6 mmol/L (3.5-5.5)
== END | disposition home or self-care (01) ==
LOC: LABPAT 11:43
PROVIDERS: ATTEND Obstetrics & Gynecology
DX: Z01.812 Encounter for preprocedural laboratory examination (principal)
CPT/HCPCS: 80048; 85025

== ENCOUNTER 2022-05-25 05:42 | Day surgery (SDC) | payer OTHER ==
--- NOTE | 2022-05-24 17:33 | P.HPOB ---
History of Present Illness H&P Date: 05/24/22 Chief Complaint: Pelvic pain, post endometrial ablative syndrome This is a 47 y.o. female, 3, para 3, who presents for Davinci assisted total laparoscopic hysterectomy with bilateral salpingectomy and diagnostic cystoscopy, possible total abdominal hysterectomy with bilateral salpingooophorectomy due to pelvic pain and post endometrial ablative syndrome. She is a patient of Dr. Crawley and underwent a Novasure endometrial ablation about a year ago and had no cycles since, but for the last 4-5 months, she does have some discharge and has been experiencing cyclical pelvic cramping. Now pain is more constant. Naproxen does help, but does not relieve her pain completely. She has requested hysterectomy. Pelvic ultrasound shows uterus measuring 8 x 4.7 x 5.5 cm with endometrium measuring 12 mm with fluid and clot. Normal ovaries are noted. OB Hx: . History of 3 vaginal deliveries. 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 She does have a history of trichomonas in past and low grade pap smear. Social Hx: She is single. Not currently sexually active. 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 Review of Systems Constitutional: Denies chills, Denies fever Eyes: denies blurred vision, denies pain Ears, nose, mouth and throat: Denies headache, Denies sore throat Cardiovascular: Denies chest pain, Denies shortness of breath Respiratory: Denies cough Gastrointestinal: Reports abdominal pain Genitourinary: Reports dysmenorrhea, Reports pelvic pain Menstruation: Reports amenorrhea Musculoskeletal: Denies myalgias Integumentary: Denies pruritus, Denies rash Neurological: Denies numbness, Denies weakness Psychiatric: Denies anxiety, Denies depression Past Medical History Past Medical History: Diabetes Mellitus Additional Past Medical History / Comment(s): Borderline Gup-Zcmbyrgu-se longer needs to take medication, Hx Covid 09/18. large cyst on left kidney-urology monitoring, pelvic pain History of Any Multi-Drug Resistant Organisms: None Reported Past Surgical History: Hernia Repair, Tubal Ligation, Uterine Ablation Additional Past Surgical History / Comment(s): mult. Left Breast biopsies, umbilical hernia repair, hysteroscopy with D&C. Past Anesthesia/Blood Transfusion Reactions: No Reported Reaction Additional Past Anesthesia/Blood Transfusion Reaction / Comment(s): No hx blood transfusion to date. Past Psychological History: No Psychological Hx Reported Smoking Status: Former smoker Past Alcohol Use History: None Reported Past Drug Use History: None Reported - Past Family History Mother Family Medical History: Cancer, Coronary Artery Disease (CAD), Diabetes Mellitus Additional Family Medical History / Comment(s): Breast Cancer diagnosed at age 63. Father Family Medical History: Coronary Artery Disease (CAD), Diabetes Mellitus Medications and Allergies Home Medications Medication Instructions Recorded Confirmed Type Naproxen [Naprosyn] 500 mg PO Q12H PRN 05/22/22 05/22/22 History Allergies Allergy/AdvReac Type Severity Reaction Status Date / Time No Known Allergies Allergy Verified 05/25/22 06:37 Exam Osteopathic Statement: *. No significant issues noted on an osteopathic structural exam other than those noted in the History and Physical/Consult. HEENT: within normal limits Heart: regular rate and rhythm Lungs: clear to auscultation bilaterally Abdomen: soft, non-tender Pelvic: uterus small, mid-position, mildly tender with no adnexal masses or tenderness Extremities: negative Margarito's Assessment and Plan (1) Pelvic pain Current Visit: No Status: Acute Code(s): R10.2 - PELVIC AND PERINEAL PAIN SNOMED Code(s): 86316571 (2) Post endometrial ablation syndrome Current Visit: No Status: Acute Code(s): N99.85 - POST ENDOMETRIAL ABLATION SYNDROME SNOMED Code(s): 427246312 Plan: Proceed with DaVinci-assisted total laparoscopic hysterectomy with bilateral salpingectomy and diagnostic cystoscopy, possible total abdominal hysterectomy, bilateral salpingooophorectomy. I have discussed the risks, benefits, and alternative therapies for the above- mentioned procedure and for both sedation/anesthesia as well as necessary blood products administration, if indicated, as they pertain to this patient. The patient has indicated her understanding and acceptance of the risks and procedures discussed.
[2022-05-25] MEDS ORDERED: ONDANSETRON 4 MG/2 ML VIAL IVP ONE ×3 (05:59→09:46)
[2022-05-25] MEDS ORDERED: DEXAMETHASONE SOD PHOSPHATE 4 MG/ML 1 ML VIAL IV ONE (05:59)
[2022-05-25] MEDS ORDERED: SCOPOLAMINE 1 MG/72 HR PATCH TRANSDERM ONE (06:47)
[2022-05-25] MEDS ORDERED: LACTATED RINGERS 1,000 ML IV ONE (06:48)
[2022-05-25] MEDS ORDERED: MIDAZOLAM 2 MG/2 ML VIAL IVP ONE (07:10)
[2022-05-25] MEDS ORDERED: GLYCOPYRROLATE 0.2 MG/ML 2 ML VIAL ONE (07:24)
[2022-05-25] MEDS ORDERED: LABETALOL 5 MG/ML VIAL MDV ONE (07:24)
[2022-05-25] MEDS ORDERED: MIDAZOLAM 2 MG/2 ML VIAL ONE (07:24)
[2022-05-25] MEDS ORDERED: ROCURONIUM 10 MG/ML (5 ML VIAL) IV ONE (07:24)
[2022-05-25] MEDS ORDERED: PROPOFOL 10 MG/ML 20 ML VIAL IV ONE (07:24)
[2022-05-25] MEDS ORDERED: fentaNYL (PF) 50 MCG/ML 2 ML AMP ONE (07:24)
[2022-05-25] MEDS ORDERED: LIDOCAINE 2% INJ 20 MG/ML (2 ML VIAL) ONE (07:24)
[2022-05-25] MEDS ORDERED: HYDROmorphone (PF) 1 MG/ML ONE (07:24)
[2022-05-25] MEDS ORDERED: ROPIVACAINE 5 MG/ML 30 ML VIAL ONE (07:24)
[2022-05-25] MEDS ORDERED: SUCCINYLCHOLINE CHLORIDE 200 MG/10 ML VIAL IV ONE (07:24)
[2022-05-25] MEDS ORDERED: NEOSTIGMINE 1 MG/ML 10 ML VIAL ONE (07:24)
[2022-05-25] MEDS ORDERED: LIDOCAINE 4% LTA KIT (4 ML) TOPICAL ONE (07:24)
[2022-05-25] MEDS ORDERED: SODIUM CHLORIDE 0.9% (PF) 10 ML VIAL ONE (07:24)
[2022-05-25] MEDS ORDERED: BUPIVACAINE (PF) 0.25% 30 ML VIAL SQ ONE ×2 (07:55→09:15)
[2022-05-25] MEDS ORDERED: METOCLOPRAMIDE 5 MG/ML 2 ML VIAL IVP PRN (09:31)
[2022-05-25] MEDS ORDERED: HYDROcodone/APAP 7.5-325MG 1 EACH TAB PO PRN (09:31)
[2022-05-25] MEDS ORDERED: ZOLPIDEM 5 MG TAB PO PRN (09:31)
[2022-05-25] MEDS ORDERED: SIMETHICONE 80 MG CHEWABLE PO PRN (09:31)
[2022-05-25] MEDS ORDERED: KETOROLAC 15 MG/ML 1 ML VIAL IVP PRN (09:31)
[2022-05-25] MEDS ORDERED: diphenhydrAMINE 50 MG/ML 1 ML VIAL IVP PRN (09:31)
[2022-05-25] MEDS ORDERED: ONDANSETRON 4 MG/2 ML VIAL IVP PRN (09:31)
[2022-05-25] MEDS ORDERED: HYDROcodone/APAP 5-325MG 1 EACH TAB PO PRN (09:31)
[2022-05-25] MEDS: HYDROmorphone 0.5 MG/0.5 ML SYRINGE IVP PRN ×2 (09:48→09:53)
[2022-05-25] MEDS ORDERED: KETOROLAC 15 MG/ML 1 ML VIAL IVP ONE ×2 (10:01)
--- NOTE | 2022-05-25 10:04 | P.ANPRN ---
Procedure Note - Anesthesia - Nerve Block Performed Bilateral Erector Spinae Time Out Performed: Yes ([id number]) Date of Procedure: 05/25/22 Procedure Start Time: Procedure Stop Time: Location of Patient: PreOp Indication: Acute Post-Operative Pain, Dx/Pain Location (abdomen) Sedation Type: Sedate with meaningful contact maintained Preparation: Sterile Prep Position: Prone Needle Types: Pajunk Needle Gauge: 21 (100 mm) Ultrasound used to visualize needle placement: Yes Ultrasound used to observe medication spread: Yes Injectate: 0.5% Ropivacaine (see comment for volume) (30 cc and 20 cc Normal saline) Blood Aspirated: No Pain Paresthesia on Injection Noted: No Resistance on Injection: Normal Image Stored and Saved: Yes Events: Uneventful and Well Tolerated
[2022-05-25] MEDS ORDERED: HYDROmorphone 0.5 MG/0.5 ML SYRINGE IVP ONE ×2 (10:08)
[2022-05-25] MEDS ORDERED: diphenhydrAMINE 50 MG/ML 1 ML VIAL IVP ONE (10:15)
[2022-05-25 11:03] VITALS: RESP 16
[2022-05-25] MEDS: SENNOSIDES-DOCUSATE SODIUM 1 EACH TAB PO SCH ×2 (11:09→19:41)
[2022-05-25] MEDS ORDERED: ACETAMINOPHEN TAB 325 MG TAB PO PRN (11:24)
--- NOTE | 2022-05-25 12:46 | P.OP ---
Date of Procedure: 05/25/22 Preoperative Diagnosis: Pelvic pain Post endometrial ablation syndrome Postoperative Diagnosis: Same Anesthesia: GETA, other (Bilateral erector spinae nerve block) Surgeon: Valerie Draper (Dr. Parish-Preston) National Account Manager #1: Terri Parish Estimated Blood Loss (ml): 50 Pathology: other (Uterus with cervix and bilateral fallopian tubes) Condition: stable Disposition: floor Indications for Procedure: This is a 47 y.o. female, 3, para 3, who presents for Davinci assisted total laparoscopic hysterectomy with bilateral salpingectomy and diagnostic cystoscopy, possible total abdominal hysterectomy with bilateral salpingooophorectomy due to pelvic pain and post endometrial ablative syndrome. She is a patient of Dr. Krishnan's and underwent a Novasure endometrial ablation about a year ago and had no cycles since, but for the last 4-5 months, she does have some discharge and has been experiencing cyclical pelvic cramping. Now pain is more constant. Naproxen does help, but does not relieve her pain completely. She has requested hysterectomy. Pelvic ultrasound shows uterus measuring 8 x 4.7 x 5.5 cm with endometrium measuring 12 mm with fluid and clot. Normal ovaries are noted. Operative Findings: Uterus is sounded to 8 cm. Uterus is anteverted with a small pedunculated posterior fibroid near the cervix. There were some adhesions near on left fallopian tube near previous tubal ligation site. Both ovaries appeared normal. Description of Procedure: The patient is taken to the operating room where she is placed in the dorsal lithotomy position on a Huggie blanket after general anesthesia is given. Her arms are tucked at her sides and the Huggie blanket is inflated. She is prepped and draped in the normal sterile fashion. Next a weighted speculum was placed in the patient's vagina. The cervix is grasped with a single-tooth tenaculum. A stitch of 0 Vicryl was placed on either side of the cervix for retraction. The uterus is sounded to 8 cm. Next the V care retractor is inserted into the u terus and the balloon is inflated. The cup is then placed around the cervix after pulling the sutures through the holes in the V care cuff on either side. Next the blue cup is secured against the green cup and tightened down. Barber catheter is inserted. Of note the patient did have a firm sebaceous cyst on the right labia. Gloves are changed changed and attention is turned to the abdomen. The uterus is anteverted by an contract assistant and the the fundus of the uterus is marked on the abdomen. The trocar sites are then marked on the abdomen with a marking pen at approximately 20 cm away from the fundus of the uterus above the umbilicus and about 10 cm from the midline and below the upper trocar site on each side of the abdomen and an contract assistant port is marked about 10 cm to the left of the camera port site. A scalpel is used to incise a small incision in the contract assistant port site in the left upper quadrant of the abdomen. A 5 mm disposable blade this trocar is inserted into the abdominal cavity under direct visualization with low flow CO2 gas on. Once intra-abdominal placement is confirmed, pneumoperitoneum is achieved with approximately 3 L of CO2 gas. A small incision is made christin roximately 4 cm above the umbilicus and a 8 mm robotic trocar is then placed under direct visualization. 2 more trochars are placed on the right side of the abdomen and the left side of the abdomen on the previously marked sites after making a small incision on each site. These are placed under direct visualization. Next the 5 mm trocar is removed and a 10 mm trocar is placed in the left upper quadrant for contract assistant port. The CO2 gas was attached to the left lower quadrant port. A smoke evacuator is also attached to the right trocar. The legs are lowered slightly and the patient is placed in 25 of Trendelenburg. Next the da Magan robot is docked to the patient from the left side of the patient. The trochars are attached to arms 2 through 4 and arm 1 is stowed. Next the camera is placed through arm #3. The [place] forcep is placed through arm 2 and the monopolar scissors are placed through arm 4 under direct visualization. I then broke scrub and went to the robotic console. The fallopian tube on the left side was grasped by my contract assistant for retraction and then using the [place] forcep with bipolar cautery and monopolar scissors, the mesosalpinx was entered and the end of the left fallopian tube was freed of its adhesion. This end of the tube was then removed from the field. The left round ligament is then cauterized with bipolar energy using the [place] forcep and then cut with monopolar scissors. Monopolar scissors were then used to open the posterior leaf of the broad ligament and then the anterior leaf. The bladder flap is then created using monopolar cautery with the tips of the scissors. Next attention is turned to the right side. The right end of the fallopian tube is grasped with a grasper from the contract assistant port and then bipolar cautery is a pplied with the [place] forcep and monopolar scissors were used to cut the mesosalpinx to free the end of the tube. This end of the tube is now removed from the field. Next the round ligament on the right side is cauterized with bipolar cautery using the [place] forcep and then cut with monopolar scissors. The posterior leaf of the broad ligament is then entered with monopolar scissors followed by the anterior leaf. The bladder flap is then created using monopolar cautery. Next the uterine arteries on the right side are cauterized using bipolar energy with the [place] forcep and then cut with monopolar scissors. The same procedure is carried out on the left side. Next the vaginal cuff is entered anteriorly using monopolar scissors along the V care cuff. Once this is excised anteriorly, the uterus is anteverted and the excision is completed on the posterior side using monopolar scissors. The uterus is then removed into the vagina. Suction and irrigation is carried out. Good hemostasis is noted. Next the vaginal cuff is closed using a 2-0 Stratafix V-Loc suture in a running fashion from the right side of the cuff to the left side. Approximate 2 stitches were placed back towards the right side after reaching the right apex. The stitch is then cut and removed from the abdomen. A picture is taken. Good hemostasis is noted. Next the instruments are removed from the robot arms and then the camera is removed. Pneumoperitoneum is released and the trochars are removed. Incisions are then closed in a subcuticular fashion with 4-0 Vicryl suture and Steri-Strips are placed along with bandages. Incision sites were also injected with quarter percent Marcaine approximately 8 mL. Barber catheter is removed. Cystoscopy is then performed and urine flow is seen through both ureteral jets. The cystoscope was then removed and the Barber catheter is replaced. All instruments and needle counts are correct. The patient is then taken to recovery room in stable condition.
[2022-05-25] MEDS: IBUPROFEN 600 MG TAB PO PRN (16:16)
[2022-05-25] MEDS: LACTATED RINGERS 1,000 ML IV SCH (16:33)
[2022-05-26] MEDS: IBUPROFEN 600 MG TAB PO PRN (04:12)
[2022-05-26] MEDS: LACTATED RINGERS 1,000 ML IV SCH (06:16)
[2022-05-26 07:03] LABS: Basophils # (A) 0.1 k/uL (0-0.2); Basophils % (A) 0 %; Eosinophils # (A) 0.2 k/uL (0-0.7); Eosinophils % (A) 1 %; HGB 13.1 gm/dL (11.4-16.0); Lymphocytes # (A) 3.3 k/uL (1.0-4.8); Lymphocytes % (A) 19 %; MCH 28.7 pg (25.0-35.0); MCHC 31.3 g/dL (31.0-37.0); MCV 91.8 fL (80.0-100.0); Mean Platelet Volume 8.3; Monocytes % (A) 6 %; Neutrophils % (A) 73 %; Platelet Count 247 k/uL (150-450); RBC 4.57 m/uL (3.80-5.40); RDW 12.2 % (11.5-15.5); WBC 17.7 k/uL (3.8-10.6)
[2022-05-26] MEDS ORDERED: ACETAMINOPHEN TAB 325 MG TAB PO PRN (07:30)
[2022-05-26 08:18] VITALS: BP 147/76; PULSE 73; TEMP 98.4
--- NOTE | 2022-05-26 08:42 | P.DS ---
Providers Date of admission: 05/25/2022 Expected date of discharge: 05/26/22 Attending physician: Valerie Draper Primary care physician: Jeannie Walls - Discharge Diagnosis(es) (1) Pelvic pain Current Visit: No Status: Acute (2) Post endometrial ablation syndrome Current Visit: No Status: Acute Hospital Course: This is a 47-year-old female who underwent a da Magan robotic-assisted total laparoscopic hysterectomy with bilateral salpingectomy with cystoscopy on 05/25/2022. Postoperatively she has done well. Her pain is well-controlled with ibuprofen. She is ambulating. She is urinating. She has not had a bowel movement yet. She does feel some flatus. Scant bloody vaginal discharge. Abdomen is soft with positive bowel sounds 4. Incisions are intact with Steri- Strips in place. Extremities show negative Homans. Impression is status post robotic-assisted total laparoscopic hysterectomy with bilateral salpingectomy and cystoscopy postoperative day #1. Plan is to discharge home today. She will be given a prescription for ibuprofen 600 mg every 6 hours as needed. She can alternate this with Tylenol if needed. She may shower but no tub baths for 1 week. No intercourse for 6-8 weeks. She is instructed to follow-up in the office in approximately 1 week for a postoperative check. Procedures: Da Magan robotic-assisted total laparoscopic hysterectomy with bilateral salpingectomy and cystoscopy on 05/25/2022 Patient Condition at Discharge: Stable Plan - Discharge Summary Discharge Rx Participant: Yes New Discharge Prescriptions: New RX: Ibuprofen [Motrin] 600 mg PO Q6HR PRN #60 tab PRN Reason: Mild Discomfort No Action Naproxen [Naprosyn] 500 mg PO Q12H PRN PRN Reason: Pain Discharge Medication List Naproxen [Naprosyn] 500 mg PO Q12H PRN 05/22/22 [History] RX: Ibuprofen [Motrin] 600 mg PO Q6HR PRN #60 tab 05/26/22 [Rx] Follow up Appointment(s)/Referral(s): Valerie Draper DO [Doctor of Osteopathic Medicine] - 1 Week Activity/Diet/Wound Care/Special Instructions: Activity as tolerated. Diet as tolerated. May shower, but no tub baths for 1 week. No intercourse for 6-8 weeks. No heavy lifting. Discharge Disposition: HOME SELF-CARE
[2022-05-26] MEDS: SENNOSIDES-DOCUSATE SODIUM 1 EACH TAB PO SCH (08:53)
== END 2022-05-26 09:00 | disposition home or self-care (01) ==
LOC: OR 05:42 → 4FBP 09:47 → OR 05-26 09:00
PROVIDERS: ATTEND Obstetrics & Gynecology
DX: N80.0 Endometriosis of uterus (principal); N72 Inflammatory disease of cervix uteri; N87.9 Dysplasia of cervix uteri, unspecified; N88.8 Other specified noninflammatory disorders of cervix uteri; D25.2 Subserosal leiomyoma of uterus; N83.8 Other noninflammatory disorders of ovary, fallopian tube and broad ligament; N70.11 Chronic salpingitis; N73.6 Female pelvic peritoneal adhesions (postinfective); Z98.51 Tubal ligation status; N90.7 Vulvar cyst; G89.18 Other acute postprocedural pain; F41.9 Anxiety disorder, unspecified; E11.9 Type 2 diabetes mellitus without complications; F17.200 Nicotine dependence, unspecified, uncomplicated; Z80.3 Family history of malignant neoplasm of breast; Z82.49 Family history of ischemic heart disease and other diseases of the circulatory system; Z83.3 Family history of diabetes mellitus
CPT/HCPCS: 81025; 64999; 86900; 86901; 85025; 86850; 88307; 76942; 58571; J2250; J0330; J1200; J1100; J2710; J0690; J2405; J3010; J1170 ×2; J2795; J1885; J2704; J2001

== ENCOUNTER → 2022-11-07 | Outpatient (CLI) | payer OTHER ==
--- NOTE | 2022-11-07 15:03 | MM ---
Reason for Exam: Follow-up at short interval from prior study. Last screening mammogram was performed 12 month(s) ago. Patient History: Menarche at age 14. First Full-Term at age 26. Hysterectomy at age 47. Postmenopausal. Patient used Hormonal Contraceptives for 2 years. 01/30/2022, MG pre op needle loc LT - 2 on the Left side. 01/30/2022, Benign Core Biopsy on the left side. 01/30/2022, Benign Core Biopsy on the left side. 12/05/2021, High risk Core Biopsy on the left side. 12/05/2021, Benign Cyst Aspiration on the left side. 12/05/2021, High risk Core Biopsy on the left side. 06/06/2017, High risk Core Biopsy on the left side. Mother had breast cancer, age 62. Risk Values: Ann-Marie 5 year model risk: 4.2%. NCI Lifetime model risk: 26.5%. Prior Study Comparison: 06/04/2017 Bilateral Diagnostic Ultrasound, [facility]. 06/04/2017 Bilateral Screening Mammogram, [facility]. 06/06/2017 Left Diagnostic Mammogram, [facility]. 10/12/2020 Bilateral Screening Mammogram, [facility]. 10/15/2020 Bilateral Diagnostic Ultrasound, [facility]. 11/02/2021 Bilateral Screening Mammogram, [facility]. 11/04/2021 Left Diagnostic Mammogram, [facility]. 11/04/2021 Left Diagnostic Ultrasound, [facility]. Tissue Density: The breast tissue is heterogeneously dense. This may lower the sensitivity of mammography. Findings: Analyzed By CAD. Very complex bilateral breast tissues with multiple areas of underlying nodularity, most of which appears chronic. Microclip central outer left breast from prior biopsy. Surgical clips posterior upper outer quadrant from more recent excision of high risk atypia. There is an enlarging area of focal asymmetry upper outer quadrant right breast anterior to middle depth. Also, reassessment with ultrasound of the extensive left breast nodularity is recommended. Overall Assessment: Incomplete: need additional imaging evaluation, BI-RAD 0 Management: Diagnostic Breast Ultrasound of both breasts. Left whole breast. Right upper outer quadrant. Electronically signed and approved by: Almas Adams M.D. Radiologist
--- NOTE | 2022-11-07 15:53 | USB ---
Reason for Exam: Additional evaluation requested from abnormal screening. Patient History: Menarche at age 14. First Full-Term at age 26. Hysterectomy at age 47. Postmenopausal. Patient used Hormonal Contraceptives for 2 years. 01/30/2022, MG pre op needle loc LT - 2 on the Left side. 01/30/2022, Benign Core Biopsy on the left side. 01/30/2022, Benign Core Biopsy on the left side. 12/05/2021, High risk Core Biopsy on the left side. 12/05/2021, Benign Cyst Aspiration on the left side. 12/05/2021, High risk Core Biopsy on the left side. 06/06/2017, High risk Core Biopsy on the left side. Mother had breast cancer, age 62. Risk Values: Ann-Marie 5 year model risk: 4.2%. NCI Lifetime model risk: 26.5%. Prior Study Comparison: 10/12/2020 Bilateral Screening Mammogram, [facility]. 11/02/2021 Bilateral Screening Mammogram, [facility] 11/04/2021 Left Diagnostic Mammogram, [facility]. 11/04/2021 Left Diagnostic Ultrasound, [facility]. Findings: The whole breast of the left breast, the upper outer quadrant of the right breast, the axilla of both breasts and the retroareolar of both breasts were scanned. RIGHT: Targeted scanning of the right breast upper outer quadrant from 9:00 to 12:00 including the subareolar region and axilla. There is a cyst measuring 1.8 x 1.7 x 1.3 cm, likely mammographic correlate. Adjacent smaller 7 mm cyst is present. LEFT: Whole left breast ultrasound is performed including scanning of the subareolar region and axilla. Numerous scattered cysts are present throughout, largest measuring up to 1.3 cm. * At the 4:00 position, 7 cm from nipple, there is an oval, circumscribed, solid hypoechoic mass measuring 9 x 8 x 5 mm. Some peripheral vascularity is noted and there is suggestion of some posterior through transmission. Biopsy recommended. Fibroadenoma is possible. At the 4:00 position, 4 cm from the nipple, a similar but smaller oval mass measuring 8 x 6 x 6 mm. * At the 6:00 position, 3 cm from the nipple, there is a mixed solid cystic mass, primarily solid measuring 1.0 x 0.9 x 0.7 cm. Possible complex cystic mass for which tissue sampling is recommended. Prominent but nonenlarged axillary lymph node shows uniform cortex measuring up to 2.5 mm. Overall Assessment: Suspicious, BI-RAD 4 Management: Ultrasound Core Biopsy of the left breast. 2 sites (4:00, 7 cm from the nipple possible fibroadenoma) and (6:00 3 cm from the nipple, possible mixed solid cystic mass). There is a third lesion which appears similar but smaller at 8 mm. If these biopsies are benign, this third area can be reassessed at follow-up. Results were given to the patient verbally at the time of exam. Electronically signed and approved by: Almas Adams M.D. Radiologist
== END | disposition home or self-care (01) ==
LOC: RADMAMWWP 14:18
PROVIDERS: ATTEND Surgery
DX: R92.8 Other abnormal and inconclusive findings on diagnostic imaging of breast (principal); N60.02 Solitary cyst of left breast; Z78.0 Asymptomatic menopausal state; Z80.3 Family history of malignant neoplasm of breast
CPT/HCPCS: 77066; 76642; G0279; 77062

== ENCOUNTER → 2022-11-17 | Outpatient (CLI) | payer OTHER ==
--- NOTE | 2022-11-18 05:26 | MR ---
EXAMINATION TYPE: MR kidney wo/w con DATE OF EXAM: 11/17/2022 COMPARISON: 04/17/2022 HISTORY: Left kidney mass. CONTRAST: Standard multiplanar, multisequence MRI departmental protocol images were obtained without contrast a nd with 9 mL intravenous Gadavist gadolinium contrast. There is on the posterior superior aspect of the left kidney a septated fluid signal mass that measur es 5.7 x 5 cm. There are thin internal septations. The liver has low signal on T1 images and shows so me enhancement of the septa. The septa are relatively thin. The remainder of the kidneys appear eligio l. There is no hydronephrosis. No retroperitoneal adenopathy. Ureters are not dilated. Liver and spleen appear intact. The bile ducts are not dilated. Gallbladder appears normal. No pancre atic mass. Pancreatic duct appears normal. Stomach is intact. The lung bases show no pleural fluid. N o sign of pericardial effusion. There is no evidence of ascites. No evidence of bowel obstruction. No adrenal mass. IMPRESSION: Septated large cyst on the upper pole left kidney is not changed significantly compared to old exam. Enhancement pattern of the septa is not changed. No evidence of any significant solid component
== END | disposition home or self-care (01) ==
LOC: RADMRIMAIN 17:12
PROVIDERS: ATTEND Urology
DX: D41.02 Neoplasm of uncertain behavior of left kidney (principal); N28.1 Cyst of kidney, acquired
CPT/HCPCS: 74183; A9585

== ENCOUNTER → 2022-11-17 | Day surgery (SDC) | payer OTHER ==
--- NOTE | 2022-11-22 09:46 | MM ---
Reason for Exam: Post Procedure Mammogram. Last screening mammogram was performed less than 1 month ago. Patient History: Menarche at age 14. First Full-Term at age 26. Hysterectomy at age 47. Postmenopausal. Patient used Hormonal Contraceptives for 2 years. 01/30/2022, MG pre op needle loc LT - 2 on the Left side. 01/30/2022, Benign Core Biopsy on the left side. 01/30/2022, Benign Core Biopsy on the left side. 12/05/2021, High risk Core Biopsy on the left side. 12/05/2021, Benign Cyst Aspiration on the left side. 12/05/2021, High risk Core Biopsy on the left side. 06/06/2017, High risk Core Biopsy on the left side. Mother had breast cancer, age 62. Risk Values: Ann-Marie 5 year model risk: 4.2%. NCI Lifetime model risk: 26.5%. Prior Study Comparison: 11/02/2021 Bilateral Screening Mammogram, [facility]. 11/04/2021 Left Diagnostic Mammogram, [facility]. 11/07/2022 Bilateral MG 3D diag mammo w/cad FRED, [facility]. Tissue Density: Left: The breast tissue is heterogeneously dense. This may lower the sensitivity of mammography. Pathology Description: Location: 4 o'clock. Marker Left Behind. Needle Type: Mammotome Cores: 4 Gauge: 13 Pathology Description: Location: 6 o'clock. Marker Left Behind. Needle Type: Mammotome Cores: 3 Gauge: 13 The procedure of ultrasound guided core biopsy was explained to the patient. Benefits, alternatives, and risks were discussed. An informed consent was then obtained. The patient was placed in supine positioning for imaging and for the procedure. The overlying skin at the 2 sites in the left breast was prepped and draped in usual sterile fashion. Lidocaine was used as anesthetic into the skin and subcutaneous tissue up to area of concern in the left breast at 6:00. Under ultrasound guidance, a 12-gauge vacuum assisted biopsy gun device was used to obtain 3 core samples. Following this, a biopsy clip (wing) was left in lesion. Attention was turned to the second site. Lidocaine was used as anesthetic into the skin and subcutaneous tissue up to area of concern in the left breast at 4:00. Under ultrasound guidance, a 12-gauge vacuum assisted biopsy gun device was used to obtain 4 core samples. Following this, a biopsy clip (butterfly) was left in lesion. The patient tolerated the procedure well without any immediate complication. The patient was kept in the radiology department for short stay after the procedure and then discharged home in stable condition. Postprocedure mammogram: The patient was transferred to mammography for physician ordered post procedure mammogram for clip placement verification. Both biopsy clips are demonstrated in appropriate position within the left breast. Impression: Successful, uncomplicated 2 site ultrasound guided core biopsy of the left breast, full pathology results to follow. Pathology Results: Result: Benign, Fibrocystic change. A. LEFT BREAST, FOUR O'CLOCK, ULTRASOUND GUIDED NEEDLE CORE BIOPSY: Fibroadenoma and background fibrocystic changes. B. LEFT BREAST, SIX O'CLOCK, ULTRASOUND GUIDED NEEDLE CORE BIOPSY: Fibrocystic changes including columnar cell change and sclerosing adenosis with calcifications. Focal fibrosis/scar. Overall Assessment: Benign Assessment: MG diagnostic mammo LT wo CAD. - Left: Benign, BI-RAD 2. Management: Diagnostic Breast Ultrasound of the left breast in 6 months. Electronically signed and approved by: Jon Castillo D.O.
== END ==
LOC: RADUSWWP 10:14
PROVIDERS: ATTEND Surgery
DX: D24.2 Benign neoplasm of left breast (principal); N60.12 Diffuse cystic mastopathy of left breast; N60.22 Fibroadenosis of left breast; Z78.0 Asymptomatic menopausal state; Z80.3 Family history of malignant neoplasm of breast
CPT/HCPCS: 88305; 77065; 19083; 19084; A4648

== ENCOUNTER → 2023-03-12 | Outpatient (CLI) | payer OTHER ==
[2023-03-13 01:51] LABS: Appearance,Urine Cloudy (Clear); Bilirubin,Urine Negative (Negative); Blood,Urine Negative (Negative); Color,Urine Yellow (Yellow); Ketones,Urine Negative (Negative); Nitrite,Urine Negative (Negative); Specific Gravity,Urine 1.023 (1.001-1.030)
[2023-03-13 02:15] LABS: Basophils # (A) 0.09 X 10*3/uL (0.00-0.10); Basophils % (A) 0.7 %; Eosinophils # (A) 0.27 X 10*3/uL (0.04-0.35); Eosinophils % (A) 2.1 %; HCT 45.3 % (37.2-46.3); HGB 14.1 g/dL (12.0-15.0); Immature Grans, Automated 0.4 %; Lymphocytes # (A) 4.03 X 10*3/uL (0.90-5.00); Lymphocytes % (A) 31.8 %; MCH 29.3 pg (27.0-32.0); MCHC 31.1 g/dL (32.0-37.0); Mean Platelet Volume 12.3 fL (9.5-12.2); Monocytes # (A) 0.82 X 10*3/uL (0.20-1.00); Monocytes % (A) 6.5 %; NRBC Per 100 WBC 0 /100 WBCS (0.0-0.0); Neutrophils # (A) 7.41 X 10*3/uL (1.80-7.70); Neutrophils % (A) 58.5 %; Platelet Count 282 X 10*3/uL (140-440); RBC 4.82 X 10*6/uL (4.10-5.20); RDW 12.5 % (11.5-14.5); WBC 12.67 X 10*3/uL (4.50-10.00)
[2023-03-13 02:35] LABS: African American GFR (CKD) 103.2 (60.0-200.0); Anion Gap 10.9 mmol/L (10.00-18.00); BUN/Creat Ratio 10.5 Ratio (12.00-20.00); Blood Urea Nitrogen 8.4 mg/dL (9.0-27.0); Calcium 9.5 mg/dL (8.7-10.3); Carbon Dioxide 24.1 mmol/L (20.0-27.5); Potassium 4.3 mmol/L (3.5-5.5)
[2023-03-13 03:17] LABS: Bacteria,Urine 3+ /HPF (None Seen); Calcium Oxalate Crystals,Urine Present /LPF (None Seen); Mucus,Urine Present /LPF (None Seen)
== END | disposition home or self-care (01) ==
LOC: LABPAT 15:57
PROVIDERS: ATTEND Urology
DX: Z01.812 Encounter for preprocedural laboratory examination (principal); D41.02 Neoplasm of uncertain behavior of left kidney; R31.29 Other microscopic hematuria; R53.83 Other fatigue
CPT/HCPCS: 80048; 81001; 85025; 87086

== ENCOUNTER 2023-03-23 05:33 | Day surgery (SDC) | payer OTHER ==
[2023-03-23] MEDS ORDERED: DEXAMETHASONE SOD PHOSPHATE 4 MG/ML 1 ML VIAL IV ONE (05:43)
[2023-03-23] MEDS ORDERED: MIDAZOLAM 2 MG/2 ML VIAL IV PRN (05:43)
[2023-03-23] MEDS ORDERED: ONDANSETRON 4 MG/2 ML VIAL IVP ONE (05:43)
[2023-03-23] MEDS ORDERED: SCOPOLAMINE 1 MG/72 HR PATCH TRANSDERM ONE (05:43)
[2023-03-23] MEDS: LACTATED RINGERS 1,000 ML IV SCH (06:21)
[2023-03-23] MEDS ORDERED: MIDAZOLAM 2 MG/2 ML VIAL IVP ONE (06:40)
[2023-03-23] MEDS ORDERED: fentaNYL (PF) 50 MCG/1 ML VIAL IVP ONE (06:40)
[2023-03-23] MEDS ORDERED: HYDROmorphone 0.5 MG/0.5 ML SYRINGE IVP PRN (07:00)
[2023-03-23 07:02] LABS: Glucose,Whole Blood 110 mg/dL (70-110)
[2023-03-23] MEDS ORDERED: NEOSTIGMINE 1 MG/ML 10 ML VIAL ONE (07:03)
[2023-03-23] MEDS ORDERED: MIDAZOLAM 2 MG/2 ML VIAL ONE (07:03)
[2023-03-23] MEDS ORDERED: ROPIVACAINE 5 MG/ML 30 ML VIAL ONE (07:03)
[2023-03-23] MEDS ORDERED: LIDOCAINE 2% INJ 20 MG/ML (2 ML VIAL) ONE (07:03)
[2023-03-23] MEDS ORDERED: ROCURONIUM 10 MG/ML (5 ML VIAL) IV ONE (07:03)
[2023-03-23] MEDS ORDERED: SUCCINYLCHOLINE CHLORIDE 200 MG/10 ML VIAL IV ONE (07:03)
[2023-03-23] MEDS ORDERED: MANNITOL 25% 12.5 GM/50 ML VIAL ONE (07:03)
[2023-03-23] MEDS ORDERED: fentaNYL (PF) 50 MCG/ML 2 ML AMP ONE (07:03)
[2023-03-23] MEDS ORDERED: HYDROmorphone (PF) 1 MG/ML ONE (07:03)
[2023-03-23] MEDS ORDERED: PROPOFOL 10 MG/ML 20 ML VIAL IV ONE (07:03)
[2023-03-23] MEDS ORDERED: SODIUM CHLORIDE 0.9% (PF) 10 ML VIAL ONE (07:03)
[2023-03-23] MEDS ORDERED: GLYCOPYRROLATE 0.2 MG/ML 2 ML VIAL ONE (07:03)
--- NOTE | 2023-03-23 07:16 | P.HPIHPCON ---
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 Discussed with her the option of continued surveillance versus excision. Risk and benefit of each approach were discussed in details. She agreed to proceed with a left-sided partial nephrectomy. Discussed risks which includes but not limited to bleeding, infection, injury to nearby organs which includes but not limited to the spleen, pancreas, bowel. Discussed also the potential of conversion to a nephrectomy given the size of the tumor. Discussed also if this is a malignant lesion potential of recurrence and need for postoperative surveillance. Discussed also potential this could be a benign tumor. Discussed also the risk from anesthesia. Risk if a radical nephrectomy performed discussed the risk of needing hemodialysis and the short and long-term. She understood all the risk and agreed to proceed Consent for Procedure: I have explained the operation/procedure to the patient, including the risks, benefits, side effects, alternative therapies (including not receiving the proposed treatment or service), the likelihood of the patient achieving his/her goals, and potential recuperation problems for the procedure/sedation/analgesia, as well as any blood products, if indicated. I also explained to the patient the risks, benefits and side effects of the alternatives, as well as the risks related to not receiving the proposed procedure, care, treatment, or services. Past Medical History Past Medical History: COPD, Diabetes Mellitus Additional Past Medical History / Comment(s): Borderline Itt-Nidlqnyc-vadt't taken medication >year, Hx Covid 09/18. large cyst on left kidney, diver ticulitis hx, Factor V. MTHFR gene dx 2021. History of Any Multi-Drug Resistant Organisms: None Reported Past Surgical History: Breast Surgery, Hernia Repair, Hysterectomy, Tubal Ligation, Uterine Ablation Additional Past Surgical History / Comment(s): mult. left breast biopsies, benign left breast lump removed, umbilical hernia repair, hysteroscopy with D&C. Past Anesthesia/Blood Transfusion Reactions: No Reported Reaction Additional Past Anesthesia/Blood Transfusion Reaction / Comment(s): No hx blood transfusion to date. Smoking Status: Current every day smoker - Past Family History Mother Family Medical History: Cancer, Coronary Artery Disease (CAD), Diabetes Mellitus Additional Family Medical History / Comment(s): Breast Cancer diagnosed at age 63. Father Family Medical History: Coronary Artery Disease (CAD), Diabetes Mellitus Medications and Allergies Home Medications Medication Instructions Recorded Confirmed Type Lisdexamfetamine Dimesylate 30 mg PO QAM 11/08/22 03/21/23 History [Vyvanse] Ergocalciferol [Vitamin D2 (1250 1,250 mcg PO WEEKLY 03/21/23 03/21/23 History Mcg = 71039 Iu)] Methyltetrahydrofolate Glucosa 1 each PO DAILY 03/21/23 03/21/23 History [Methylfolate] Chester-3/Dha/Epa/Fish Oil [Fish Oil 1 each PO DAILY 03/21/23 03/21/23 History 1,000 mg Softgel] Pyridoxine HCl (Vitamin B6) 100 mg PO DAILY 03/21/23 03/21/23 History [Vitamin B-6] Riboflavin (Vitamin B2) [Vitamin 50 mg PO DAILY 03/21/23 03/21/23 History B-2] Allergies Allergy/AdvReac Type Severity Reaction Status Date / Time No Known Allergies Allergy Verified 03/23/23 05:47 Surgical - Exam Vital Signs Temp Pulse Resp BP Pulse Ox 97.6 F 96 16 147/108 97 03/23/23 05:57 03/23/23 05:57 03/23/23 05:57 03/23/23 05:57 03/23/23 05:57 - General no distress, no pain - Eyes normal ocular movement, no pale - ENT normal nares, normal mucosa - Respiratory normal expansion, normal respiratory effort - Abdomen Abdomen: soft, non tender Assessment and Plan Assessment: OR for left-sided partial nephrectomy, possible radical
[2023-03-23] MEDS ORDERED: HYDROmorphone 1 MG/ML 1 ML SYRINGE IVP PRN (07:21)
[2023-03-23] MEDS ORDERED: BUPIVACAINE (PF) 0.5% 30 ML VIAL SQ ONE (07:47)
--- NOTE | 2023-03-23 09:45 | P.ANPRN ---
Procedure Note - Anesthesia - Nerve Block Performed Bilateral Erector Spinae Time Out Performed: Yes (06:40) Date of Procedure: 03/23/23 Procedure Start Time: :40 Procedure Stop Time: 06:46 Location of Patient: PreOp Indication: Acute Post-Operative Pain, Requested by Surgeon (Dr Palm) Sedation Type: Sedate with meaningful contact maintained Preparation: Sterile Prep Position: Prone Catheter: None Needle Types: Pajunk Needle Gauge: 21 Ultrasound used to visualize needle placement: Yes Ultrasound used to observe medication spread: Yes Injectate: 0.5% Ropivacaine (see comment for volume) (15cc +10cc PF Normal saline each side) Blood Aspirated: No Pain Paresthesia on Injection Noted: No Resistance on Injection: Normal Image Stored and Saved: Yes Events: Uneventful and Well Tolerated
[2023-03-23] MEDS ORDERED: LACTATED RINGERS 1,000 ML IV ONE (09:47)
[2023-03-23] MEDS ORDERED: HYDROmorphone 0.5 MG/0.5 ML SYRINGE IVP ONE ×4 (10:34→11:36)
[2023-03-23] MEDS: D5-0.45% NACL WITH KCL 20MEQ/L 1,000 ML IV SCH ×2 (12:38→17:24)
--- NOTE | 2023-03-23 12:54 | P.OP ---
Date of Procedure: 03/23/23 Preoperative Diagnosis: Left renal mass Postoperative Diagnosis: Same Procedure(s) Performed: Robotic-assisted laparoscopic left partial nephrectomy, with the use of intraoperative ultrasound Implants: none Anesthesia: SARAH Surgeon: Nicola [employer] Assistant #1: Jana De Leon Estimated Blood Loss (ml): 50 Pathology: other (left renal mass) Condition: stable Disposition: PACU Indications for Procedure: This is a 47-year-old female with history of a 5.7 cm left-sided septated cystic renal mass with enhancement along the septum. Discussed with her the option of continued surveillance versus excision. Risk and benefit of each approach were discussed in details. She agreed to proceed with a left-sided partial nephrectomy. Discussed risks which includes but not limited to bleeding, infection, injury to nearby organs which includes but not limited to the spleen, pancreas, bowel. Discussed also the potential of conversion to a nephrectomy given the size of the tumor. Discussed also if this is a malignant lesion potential of recurrence and need for postoperative surveillance. Discussed also potential this could be a benign tumor. Discussed also the risk from anesthesia. Risk if a radical nephrectomy performed discussed the risk of needing hemodialysis and the short and long-term. She understood all the risk and agreed to proceed Description of Procedure: The patient was taken to the operating room . General anesthesia was induced. She was prepped and draped in sterile fashion, she was placed in modified flank position . All pressure points were padded. The abdominal insufflation was achieved with the Veress needle. A 8 mm camera port was placed. Robotic trocars and assistant distribution manager ports were placed under direct vision. The robot was docked into place. The colon was mobilized medially by incising along the white line of Toldt. Next the spleen and the pancrease were mobilized. Once the bowel, spleen and pancreas were mobilized. At this time the gonadal vessel was visualized. Once the gonadal vessel and ureter was visualized , next after the psoas plane was developed the ureter and gonadal vessel was retracted anteriorly off the psoas muscle. Dissection proceeded cranially towards the renal hilum. The upper pole attachments were dissected. Care was taken to safely mobilize the kidney free of all visceral structures.The renal vessels were dissected. The renal artery and the vein was dissected in preparation for clamping. Next attention was carried to the tumor, the area around the tumor was defatted, insuring adequate defatting to identify a normal parenchyma, the kidney was completely mobilized. Manitol was administered. The edges of the tumors were identified using the intraoperative ultrasound. The renal artery was clamped using 2 bulldogs. After clamping the renal artery the tumor was excised sharply with adequate margin, and cautery was used in areas of bleeding. Of note the tumor was cystic in appearance. Next the defect was closed in 2 layers using 30V lock for the inner layer, 20V lock in interrupted fashion for the outer layer. Sliding clip technique was used. Next the clamps were removed, there was no evidence of bleeding from the defect. Total clamp time was 23 minutes Hemostatic agents were applied The kidney tumor was placed in an Endo Catch bag. A CLARISSA drain was placed through the lower robotic trocor incision. The robot was then de-docked and the specimen was then removed by extending the assistant distribution manager port. Fascia was closed with one layer using #1 PDS. Skin was closed with subcuticular sutures and dermabond. The patient was awoken from general anesthesia in stable condition. all counts were correct Please refer to the final pathology report for final diagnosis
[2023-03-23] MEDS: KETOROLAC 15 MG/ML 1 ML VIAL IVP SCH ×3 (13:18→23:02)
[2023-03-23] MEDS ORDERED: ONDANSETRON 4 MG/2 ML VIAL IVP PRN (23:53)
[2023-03-24] MEDS: D5-0.45% NACL WITH KCL 20MEQ/L 1,000 ML IV SCH ×3 (01:27→21:29)
[2023-03-24] MEDS: KETOROLAC 15 MG/ML 1 ML VIAL IVP SCH ×4 (06:02→23:15)
[2023-03-24 10:14] LABS: African American GFR (CKD) 70.2 (60.0-200.0); Anion Gap 8.2 mmol/L (10.00-18.00); BUN/Creat Ratio 9.18 Ratio (12.00-20.00); Blood Urea Nitrogen 10.1 mg/dL (9.0-27.0); Calcium 8.5 mg/dL (8.7-10.3); Carbon Dioxide 24.8 mmol/L (20.0-27.5); Non-African American GFR(CKD) 60.6 (60.0-200.0); Potassium 4.2 mmol/L (3.5-5.5)
[2023-03-24 10:16] LABS: HCT 38.7 % (37.2-46.3); HGB 12.3 g/dL (12.0-15.0); MCH 29.4 pg (27.0-32.0); MCHC 31.8 g/dL (32.0-37.0); MCV 92.4 fL (80.0-97.0); Mean Platelet Volume 11.6 fL (9.5-12.2); NRBC Per 100 WBC 0 /100 WBCS (0.0-0.0); Platelet Count 215 X 10*3/uL (140-440); RBC 4.19 X 10*6/uL (4.10-5.20); RDW 12.5 % (11.5-14.5); WBC 13.19 X 10*3/uL (4.50-10.00)
[2023-03-24] MEDS: LACTATED RINGERS 1,000 ML IV SCH (10:55)
[2023-03-24] MEDS ORDERED: ONDANSETRON 4 MG/2 ML VIAL IVP PRN (12:04)
--- NOTE | 2023-03-24 12:24 | P.PN ---
Subjective Progress Note Date: 03/24/23 The patient is in the hospital for a left robotic partial nephrectomy done 03/23/23. She has done well overnight. She still has some discomfort and some nausea. Objective - Vital Signs Vital signs: Vital Signs Temp 98.1 F 03/24/23 07:32 Pulse 68 03/24/23 07:45 Resp 17 03/24/23 07:45 BP 132/83 03/24/23 07:32 Pulse Ox 98 03/24/23 08:44 FiO2 Intake & Output 03/23/23 03/24/23 03/24/23 18:59 06:59 18:59 Intake Total 2700 Output Total 670 945 Balance 2030 -945 Weight 103.3 kg Intake: IV 2150 Oral 550 Output: Drainage 45 Left Lower Anterior 45 Abdomen Urine 620 900 Estimated Blood Loss 50 Other: Voiding Method Indwelling Catheter - Constitutional General appearance: Present: cooperative, no acute distress - Respiratory Details: Normal respirations - Cardiovascular Rhythm: regular - Gastrointestinal Gastrointestinal Comment(s): Mild tenderness - Labs CBC & Chem 7: 03/24/23 05:36 03/24/23 05:36 Labs: Abnormal Lab Results - Last 24 Hours (Table) 03/24/23 03/24/23 Range/Units 05:36 05:36 WBC 13.19 H (4.50-10.00) X 10*3/uL MCHC 31.8 L (32.0-37.0) g/dL Anion Gap 8.20 L (10.00-18.00) mmol/L BUN/Creatinine Ratio 9.18 L (12.00-20.00) Ratio Calcium 8.5 L (8.7-10.3) mg/dL Assessment and Plan Assessment: Impression: Status post robotic-assisted partial left nephrectomy. Postoperative day #1 Recommendations: The patient is doing relatively well although her pain is still enough that I do not think she is ready for discharge home. I'll remove her Barber. The drain will remain in place. I will ambulate the patient. I anticipate discharge in 24-48 hours.
[2023-03-25] MEDS: D5-0.45% NACL WITH KCL 20MEQ/L 1,000 ML IV SCH ×2 (03:32→06:19)
[2023-03-25] MEDS: KETOROLAC 15 MG/ML 1 ML VIAL IVP SCH ×2 (06:17→11:23)
[2023-03-25] MEDS: LACTATED RINGERS 1,000 ML IV SCH (06:22)
[2023-03-25 09:12] VITALS: BP 134/79; PULSE 91; RESP 16; TEMP 98.9
--- NOTE | 2023-03-25 12:06 | P.DS ---
Providers Attending physician: Nicola Palm MD Primary care physician: [facility] Course: 7-year-old female who was admitted the hospital for a left partial nephrectomy by ,. She underwent this on 03/23/23 without difficulty. She is recuperating appropriately. Her catheters been removed she and she is voiding well. Her diet is been advanced. Her abdomen is soft. Her pain is tolerable. He be discharged home on a regular diet. Limited activity. She'll go home with the drain. She'll follow-up with next week for drain removal. She has been given a prescription of [place]. Her condition is good. Patient Condition at Discharge: Good Plan - Discharge Summary Discharge Rx Participant: Yes New Discharge Prescriptions: New HYDROcodone/APAP 5-325MG [[place] 5-325] 1 tab PO Q4HR PRN #14 tab PRN Reason: Pain No Action Lisdexamfetamine Dimesylate [Vyvanse] 30 mg PO QAM [place]-3/Dha/Epa/Fish Oil [Fish Oil 1,000 mg Softgel] 1 each PO DAILY Ergocalciferol [Vitamin D2 (1250 Mcg = 20795 Iu)] 1,250 mcg PO WEEKLY Riboflavin (Vitamin B2) [Vitamin B-2] 50 mg PO DAILY Pyridoxine HCl (Vitamin B6) [Vitamin B-6] 100 mg PO DAILY Methyltetrahydrofolate Glucosa [Methylfolate] 1 each PO DAILY Discharge Medication List Lisdexamfetamine Dimesylate [Vyvanse] 30 mg PO QAM 11/08/22 [History] Ergocalciferol [Vitamin D2 (1250 Mcg = 79133 Iu)] 1,250 mcg PO WEEKLY 03/21/23 [History] Methyltetrahydrofolate Glucosa [Methylfolate] 1 each PO DAILY 03/21/23 [History] [place]-3/Dha/Epa/Fish Oil [Fish Oil 1,000 mg Softgel] 1 each PO DAILY 03/21/23 [History] Pyridoxine HCl (Vitamin B6) [Vitamin B-6] 100 mg PO DAILY 03/21/23 [History] Riboflavin (Vitamin B2) [Vitamin B-2] 50 mg PO DAILY 03/21/23 [History] HYDROcodone/APAP 5-325MG [[place] 5-325] 1 tab PO Q4HR PRN #14 tab 03/25/23 [Rx] Follow up Appointment(s)/Referral(s): Nicola Palm MD [STAFF PHYSICIAN] - 03/29/23 (call Kathleen next week for removal; of drain) Discharge Disposition: HOME SELF-CARE
[2023-03-28] MEDS ORDERED: ERGOCALCIFEROL 1,250 MCG (50,000 IU) CAPSULE PO SCH (09:00)
== END 2023-03-25 12:46 | disposition home or self-care (01) ==
LOC: OR 05:33 → 4SSUR 10:11 → OR 03-25 12:46
PROVIDERS: ATTEND Urology
DX: C64.2 Malignant neoplasm of left kidney, except renal pelvis (principal); G89.18 Other acute postprocedural pain; J44.9 Chronic obstructive pulmonary disease, unspecified; F17.210 Nicotine dependence, cigarettes, uncomplicated; R73.03 Prediabetes; Z86.16 Personal history of COVID-19; Z87.19 Personal history of other diseases of the digestive system; Z79.51 Long term (current) use of inhaled steroids; Z79.899 Other long term (current) drug therapy
CPT/HCPCS: 50543; S2900; 64999; 80048; 85027; 86850; 86900; 86901; 88307; 94760

== ENCOUNTER → 2023-05-08 | Outpatient (CLI) | payer OTHER ==
--- NOTE | 2023-05-08 09:46 | USB ---
Reason for Exam: Follow-up at short interval from prior study. Patient History: Menarche at age 14. First Full-Term at age 26. Hysterectomy at age 47. Postmenopausal. Patient used Hormonal Contraceptives for 2 years. 11/17/2022, US biopsy breast VAD LT on the Left side. 11/17/2022, Benign US biopsy breast add'l VAD LT on the left side. 01/30/2022, MG pre op needle loc LT - 2 on the Left side. 01/30/2022, Benign Core Biopsy on the left side. 01/30/2022, Benign Core Biopsy on the left side. 12/05/2021, High risk Core Biopsy on the left side. 12/05/2021, Benign Cyst Aspiration on the left side. 12/05/2021, High risk Core Biopsy on the left side. 06/06/2017, High risk Core Biopsy on the left side. Mother had breast cancer, age 62. Risk Values: Ann-Marie 5 year model risk: 4.2%. NCI Lifetime model risk: 26.5%. Prior Study Comparison: 11/04/2021 Left Diagnostic Mammogram, [facility]. 11/07/2022 Bilateral US breast limited BILAT, [facility]. 11/07/2022 Bilateral MG 3D diag mammo w/cad FRED, [facility]. 11/17/2022 Left MG diagnostic mammo LT wo CAD., [facility]. Findings: The lower outer quadrant of the left breast, the axilla of the left breast and the retroareolar of the left breast were scanned. Imaged: Ultrasound imaging of: All 4 quadrants, the retroareolar region and axilla. Previously biopsied lesions are identified. Clips are in place at 4:00 7 cm nipple as well as 6:00 3 cm from nipple. No suspicious masses or organizing fluid collections. No evidence for organizing fluid collection or mass. Overall Assessment: Benign, BI-RAD 2 Management: Screening Mammogram of both breasts in 1 year. A clinical breast exam by your physician is recommended on an annual basis and results should be correlated with mammographic findings. This exam should not preclude additional follow-up of suspicious palpable abnormalities. Results were given to the patient verbally at the time of exam. Electronically signed and approved by: José Ortega DO
== END | disposition home or self-care (01) ==
LOC: RADUSWWP 08:57
PROVIDERS: ATTEND Surgery
DX: R92.8 Other abnormal and inconclusive findings on diagnostic imaging of breast (principal); Z78.0 Asymptomatic menopausal state; Z80.3 Family history of malignant neoplasm of breast

== ENCOUNTER → 2023-10-27 | Outpatient (CLI) | payer OTHER ==
--- NOTE | 2023-10-27 18:29 | MR ---
EXAMINATION TYPE: MR kidney wo/w con DATE OF EXAM: 10/27/2023 9:45 AM CLINICAL INDICATION:Female, 48 years old with history of C64.2 MALIGNANT NEOPLASM OF LEFT KIDNEY, EXC EPT RE; [facility], Left renal cancer, partial nephrectomy of left kidney, f/u. COMPARISON: CT scan abdomen from 03/14/2022, MRI 11/17/2022, 04/17/2022. TECHNIQUE: Multiplanar multi-sequence imaging was performed without contrast. Post contrast imaging was performed. Post IV contrast subtraction images were also submitted for review. IV Contrast: 10 cc Gadavist FINDINGS: LOWER CHEST: No gross irregularity. ABDOMEN Liver: No evidence for cirrhosis. Signal dropout on chemical shift of phase imaging. Gallbladder and Bile ducts: No evidence for ductal dilation, or biliary stricture or evidence of chol edocholithiasis. The gallbladder is within normal limits. Pancreas: No ductal dilation. No evidence for solid mass. Spleen: Normal for size. Adrenal glands: Signal dropout within the right adrenal gland nodule on chemical shift imaging compat ible with lipid rich adrenal adenoma. Was confirmed on prior CT 03/14/2022. Kidneys: Postsurgical changes to the left kidney without evidence of recurrence. No new suspicious re nal lesions. No abnormal postcontrast enhancement. No obstructive uropathy or calculus visualized. Stomach and Bowel: No evidence for bowel wall thickening or evidence for obstruction.. Peritoneum: No evidence of pneumoperitoneum or free fluid. Vasculature: No aortic aneurysm. Musculoskeletal: The osseous structures appear intact. Lymph Nodes: No gross evidence for lymphadenopathy. Abdominal wall: Small fat-containing umbilical hernia. IMPRESSION: 1. Postsurgical changes of the left kidney without evidence for recurrence. No suspicious renal lesi ons. No evidence for lymphadenopathy 2. Hepatic steatosis.
== END | disposition home or self-care (01) ==
LOC: RADMRIMAIN 08:54
PROVIDERS: ATTEND Urology
DX: C64.2 Malignant neoplasm of left kidney, except renal pelvis (principal); K76.0 Fatty (change of) liver, not elsewhere classified; Z98.890 Other specified postprocedural states
CPT/HCPCS: 74183; A9585

== ENCOUNTER → 2023-10-27 | Outpatient (CLI) | payer OTHER ==
--- NOTE | 2023-10-27 12:14 | XR ---
EXAMINATION TYPE: XR chest 2V DATE OF EXAM: 10/27/2023 10:42 AM CLINICAL INDICATION:Female, 48 years old with history of C64.2 CH XR 2V RENAL CA L; [facility] COMPARISON: None TECHNIQUE: XR chest 2V Frontal and lateral views of the chest. FINDINGS: Lungs/Pleura: There is flattening of the diaphragm with increased lucency of the lungs. No evidence o f pneumothorax, pleural effusion or focal consolidation. Pulmonary vascularity: Unremarkable. Heart/mediastinum: Cardiomediastinal silhouette is unremarkable. Musculoskeletal: No acute osseous pathology. IMPRESSION: 1. No acute cardiopulmonary disease process. 2. COPD changes.
== END | disposition home or self-care (01) ==
LOC: RADXRMAIN 10:01
PROVIDERS: ATTEND Urology
DX: C64.2 Malignant neoplasm of left kidney, except renal pelvis (principal); J44.9 Chronic obstructive pulmonary disease, unspecified
CPT/HCPCS: 71046

== ENCOUNTER → 2023-11-20 | Outpatient (CLI) | payer OTHER ==
--- NOTE | 2023-11-20 10:36 | MM ---
Reason for Exam: Follow-up at short interval from prior study. Last screening mammogram was performed 12 month(s) ago. Patient History: Menarche at age 14. First Full-Term at age 26. Hysterectomy at age 47. Postmenopausal. Patient used Hormonal Contraceptives for 2 years. 11/17/2022, US biopsy breast VAD LT on the Left side. 11/17/2022, Benign US biopsy breast add'l VAD LT on the left side. 01/30/2022, MG pre op needle loc LT - 2 on the Left side. 01/30/2022, Benign Core Biopsy on the left side. 01/30/2022, Benign Core Biopsy on the left side. 12/05/2021, High risk Core Biopsy on the left side. 12/05/2021, Benign Cyst Aspiration on the left side. 12/05/2021, High risk Core Biopsy on the left side. 06/06/2017, High risk Core Biopsy on the left side. Maternal aunt had breast cancer at or over age 50. Mother had breast cancer, age 62. Risk Values: Ann-Marie 5 year model risk: 3.9%. NCI Lifetime model risk: 25.9%. Prior Study Comparison: 10/12/2020 Bilateral Screening Mammogram, [facility]. 10/15/2020 Bilateral Diagnostic Ultrasound, [facility]. 11/02/2021 Bilateral Screening Mammogram, [facility]. 11/04/2021 Left Diagnostic Mammogram, [facility]. 11/04/2021 Left Diagnostic Ultrasound, [facility]. 11/07/2022 Bilateral US breast limited BILAT, [facility]. 11/07/2022 Bilateral MG 3D diag mammo w/cad FRED, [facility]. 11/17/2022 Left MG diagnostic mammo LT wo CAD., [facility]. 05/08/2023 Left US breast limited LT, [facility]. Tissue Density: The breast tissue is heterogeneously dense. This may lower the sensitivity of mammography. Findings: Analyzed By CAD. Bilateral areas of asymmetric density and underlying nodularity appears similar. Scattered punctate calcifications on the left are also similar. 2 microclips left breast from prior biopsies. Post excisional changes also present on the left. Further ultrasound evaluation recommended. Overall Assessment: Incomplete: need additional imaging evaluation, BI-RAD 0 Management: Diagnostic Breast Ultrasound of both breasts. Electronically signed and approved by: Almas Adams M.D. Radiologist
--- NOTE | 2023-11-20 11:46 | USB ---
Reason for Exam: Additional evaluation requested from prior study. Patient History: Menarche at age 14. First Full-Term at age 26. Hysterectomy at age 47. Postmenopausal. Patient used Hormonal Contraceptives for 2 years. 11/17/2022, US biopsy breast VAD LT on the Left side. 11/17/2022, Benign US biopsy breast add'l VAD LT on the left side. 01/30/2022, MG pre op needle loc LT - 2 on the Left side. 01/30/2022, Benign Core Biopsy on the left side. 01/30/2022, Benign Core Biopsy on the left side. 12/05/2021, High risk Core Biopsy on the left side. 12/05/2021, Benign Cyst Aspiration on the left side. 12/05/2021, High risk Core Biopsy on the left side. 06/06/2017, High risk Core Biopsy on the left side. Maternal aunt had breast cancer at or over age 50. Mother had breast cancer, age 62. Risk Values: Ann-Marie 5 year model risk: 3.9%. NCI Lifetime model risk: 25.9%. Prior Study Comparison: 11/04/2021 Left Diagnostic Mammogram, [facility]. 11/07/2022 Bilateral US breast limited BILAT, [facility]. 11/07/2022 Bilateral MG 3D diag mammo w/cad FRED, [facility]. 11/17/2022 Left MG diagnostic mammo LT wo CAD., [facility]. 05/08/2023 Left US breast limited LT, [facility]. Findings: The whole breast of both breasts, the axilla of both breasts and the retroareolar of both breasts were scanned. A complete US of all four quadrants of both breasts, axilla, and retro-areolar regions were reviewed. Multiple benign cysts are present on both sides. However, in addition: Right: * Posterior nipple area, 9 x 7 x 7 mm cystic lesion with nodular internal debris or abnormal soft tissue for which tissue sampling is recommended in order to exclude a papillary lesion. * *At 7:00, 8 cm from the nipple, nonspecific 8 x 8 x 5 mm hypoechoic lesion that can be reassessed at follow-up. * At 11:00, 4 cm from the nipple, there is a cystic lesion with low-level internal echoes, possible debris-filled cyst. * No axillary lymphadenopathy. Left: * *At 2:00, 4 cm from the nipple, nonspecific circumscribed oval hypoechoic area measuring 8 x 7 x 5 mm for which follow-up can be performed. * At the 4:00 position, 7 cm from the nipple, previously biopsied fibroadenoma measuring smaller at 5 x 7 x 4 mm with adjacent clip from prior biopsy. * *At the 3:00 position, 4 cm from the nipple, similar appearing but larger lesion measuring 6 x 6 x 5 mm, likely an adjacent fibroadenoma that can be reassessed at follow-up. * *At the 7:00 position, 4 cm from the nipple, possible cyst cluster measuring 9 x 8 x 3 mm. * No axillary lymphadenopathy. Overall Assessment: Suspicious, BI-RAD 4 Management: Ultrasound Core Biopsy of the right breast. Subareolar lesion. Electronically signed and approved by: Almas Adams M.D. Radiologist
== END | disposition home or self-care (01) ==
LOC: RADMAMWWP 09:47
PROVIDERS: ATTEND Surgery
DX: R92.332 Mammographic heterogeneous density, left breast (principal); Z80.3 Family history of malignant neoplasm of breast; Z78.0 Asymptomatic menopausal state; Z90.710 Acquired absence of both cervix and uterus; Z92.0 Personal history of contraception
CPT/HCPCS: 77062; 77066

== ENCOUNTER → 2023-12-12 | Day surgery (SDC) | payer OTHER ==
--- NOTE | 2023-12-14 12:04 | MM ---
Reason for Exam: Post Procedure Mammogram. Last screening mammogram was performed less than 1 month ago. Patient History: Menarche at age 14. First Full-Term at age 26. Hysterectomy at age 47. Postmenopausal. Patient used Hormonal Contraceptives for 2 years. 11/17/2022, US biopsy breast VAD LT on the Left side. 11/17/2022, Benign US biopsy breast add'l VAD LT on the left side. 01/30/2022, MG pre op needle loc LT - 2 on the Left side. 01/30/2022, Benign Core Biopsy on the left side. 01/30/2022, Benign Core Biopsy on the left side. 12/05/2021, High risk Core Biopsy on the left side. 12/05/2021, Benign Cyst Aspiration on the left side. 12/05/2021, High risk Core Biopsy on the left side. 06/06/2017, High risk Core Biopsy on the left side. Maternal aunt had breast cancer at or over age 50. Mother had breast cancer, age 62. Risk Values: Ann-Marie 5 year model risk: 3.9%. NCI Lifetime model risk: 25.9%. Prior Study Comparison: 11/07/2022 Bilateral MG 3D diag mammo w/cad FRED, [facility]. 11/17/2022 Left MG diagnostic mammo LT wo CAD., [facility]. 11/20/2023 Bilateral MG 3D diag mammo w/cad FRED, [facility]. Tissue Density: Right: The breast tissue is heterogeneously dense. This may lower the sensitivity of mammography. Pathology Description: Location: retroareolar. Marker Left Behind. Needle Type: Mammotome Cores: 4 Gauge: 13 The procedure of ultrasound guided core biopsy was explained to the patient. Benefits, alternatives, and risks were discussed. An informed consent was then obtained. The lateral periareolar cystic lesion measuring 9 mm is identified and targeted for biopsy. Again, we note either internal soft tissue or clumped debris. The patient was placed in supine positioning for imaging and for the procedure. The overlying skin was prepped and draped in usual sterile fashion. Lidocaine was used as anesthetic into the skin and subcutaneous tissue up to area of concern in the lateral subareolar right breast. Under ultrasound guidance, a 13-gauge vacuum-assisted mammotome biopsy gun was used to obtain 4 core samples. The lesion collapsed at the first pass. Following this, a coil clip was left in lesion. The patient tolerated the procedure well without any immediate complication. The patient was kept in the radiology department for short stay after the procedure and then discharged home in stable condition. Postprocedure mammogram: The patient was transferred to mammography for physician ordered post procedure mammogram for clip placement verification. Post procedure mammogram shows clip in place. IMPRESSION: Successful, uncomplicated ultrasound guided core biopsy of area of concern in the lateral subareolar right breast, full pathology results to follow. As the lesion collapsed at the first pass, a benign cystic etiology is favored. Pathology Results: Result: Benign, Fibrocystic change. BREAST, RIGHT RETROAREOLAR, ULTRASOUND GUIDED NEEDLE CORE BIOPSY: Benign breast tissue with fibrocystic changes including fibrous cyst wall. Intraluminal microcalcifications are identified. Overall Assessment: Benign Assessment: MG diagnostic mammo RT wo CAD - Right: Benign, BI-RAD 2. Management: Diagnostic Breast Ultrasound of both breasts in 6 months. Bilateral ultrasound in 6 months for probably benign lesions at other sites. Electronically signed and approved by: Almas Adams M.D. Radiologist
== END ==
LOC: RADUSWWP 07:23
PROVIDERS: ATTEND Surgery
DX: N60.01 Solitary cyst of right breast (principal)
CPT/HCPCS: 88305; 77065; 19083; A4648

== ENCOUNTER → 2024-10-04 | Outpatient (CLI) | payer OTHER ==
--- NOTE | 2024-10-06 18:24 | MR ---
EXAMINATION TYPE: MR kidney wo/w con DATE OF EXAM: 10/04/2024 8:20 AM COMPARISON: MRI study dated 02/25/2033. CLINICAL INDICATION: Female, 49 years old with history of D41.02 NEOPLASM OF UNCERTAIN BEHAVIOR OF LE FT KIDN; [facility], Recheck kidney cancer, Left partial nephrectomy TECHNIQUE: Multiplanar multi-sequence imaging was performed without contrast. Post contrast imaging was performed. Post IV contrast subtraction images were also submitted for review. IV Contrast: 10 mL Gadobutrol FINDINGS: LOWER CHEST: No gross irregularity. ABDOMEN Liver: No evidence for cirrhosis. Signal dropout on chemical shift out of phase imaging. Gallbladder and Bile ducts: No evidence for ductal dilation, or biliary stricture or evidence of chol edocholithiasis. The gallbladder is within normal limits. Pancreas: No ductal dilation. No evidence for solid mass. Spleen: Normal for size. Adrenal glands: Benign right adrenal gland adenoma. Minimal nodular adenomatous thickening of the lef t adrenal gland. Kidneys: Stable post surgical changes of partial nephrectomy in the superior left kidney. No evidence of local recurrence or residual disease. No suspicious enhancing renal lesion identified in the righ t or left kidney. No hydronephrosis. Stomach and Bowel: No evidence for bowel wall thickening or evidence for obstruction. Retroperitoneum/Peritoneum: No evidence of pneumoperitoneum or free fluid. Vasculature: No aortic aneurysm. Musculoskeletal: The osseous structures appear intact. Lymph Nodes: No gross evidence for lymphadenopathy. Abdominal wall: Unremarkable. IMPRESSION: Stable postoperative changes of previous partial left nephrectomy. No evidence of local recurrence or residual disease. No suspicious renal lesion identified. [facility], , 10/06/2024 6:22 PM
== END | disposition home or self-care (01) ==
LOC: RADMRIMAIN 07:21
PROVIDERS: ATTEND Urology
DX: D41.02 Neoplasm of uncertain behavior of left kidney (principal); D35.01 Benign neoplasm of right adrenal gland; Z90.5 Acquired absence of kidney
CPT/HCPCS: 74183; A9585